=== PATIENT | female | born 1950 | race Caucasian/White ===

== ENCOUNTER → 2020-02-06 10:19 | Outpatient (CLI) | payer MEDICARE, SELFPAY ==
--- NOTE | ~2020-02-06 | XR_ITS ---
EXAMINATION: XR lumbar spine 2-3V DATE: 02/06/2020 10:38 INDICATION: Low back and tailbone pain TECHNIQUE: Anteroposterior and lateral views of the lumbar spine, and cone-down lateral view of the l umbosacral junction were obtained. COMPARISON: None. FINDINGS: There is no fracture. There are 2 mm of retrolisthesis of L4 on L5. Vertebral body alignmen t is otherwise normal. There is mild lumbar dextrocurvature. The vertebral body heights are maintaine d. There is moderate to severe loss of intervertebral disc space height at L1-2, L4-5, and L5-S1. Sma ll degenerative osteophytes project from the anterior endplates of multiple vertebral bodies. There i s facet osteoarthritis of the lower lumbar spine. IMPRESSION: 1. Moderate lumbar spondylosis without acute findings. Reviewed, dictated and finalized at location B.
--- NOTE | ~2020-02-06 | XR_ITS ---
EXAMINATION: XR hip LT 2V w AP pelvis DATE: 02/06/2020 10:38 INDICATION: Left hip pain. TECHNIQUE: An anteroposterior view of the pelvis and 2 views of left hip were obtained. COMPARISON: None. FINDINGS: There is lumbar dextrocurvature and moderate spondylosis. No fracture. There is mild osteoa rthritis of the hips. IMPRESSION: 1. Mild osteoarthritis of the hips. Reviewed, dictated and finalized at location A.
== END ==
PROVIDERS: PCP Family Medicine; Visit Provider Physician Assistant
DX: M47.896 Other spondylosis, lumbar region (principal); M16.0 Bilateral primary osteoarthritis of hip
CPT/HCPCS: 72100; 73502

== ENCOUNTER 2020-05-02 08:42 | Outpatient (CLI) | payer MEDICARE, SELFPAY ==
--- NOTE | 2020-05-02 08:53 | ECHO_ITS ---
Patient Info Name: Giselle Mcfarland Age: 69 years : 1950 Gender: Female Ht: 61 in Wt: 108 lbs BSA: 1.45 m2 BP: 180 / 99 mmHg Technical Quality: Good Exam Date: 05/02/2020 9:01 AM Exam Location: [facility] Patient Status: Outpatient Admit Date: 05/02/2020 Staff Ordering Physician: Ted Zuluaga MD [employer] Operator: Nasrin Zeng RDCS Attending Provider: Ted Zuluaga MD Referring Physician: Margareth REED; Exam Type: CA echo doppler color flow Study Info Indications R01.1 - Cardiac murmur, unspecified Complete two-dimensional, color flow and Doppler transthoracic echocardiogram is performed. Summary 1. Complete two-dimensional, color flow and Doppler transthoracic echocardiogram is performed. 2. Left ventricular chamber dimension is normal. 3. Left ventricular systolic function is normal, estimated at 55-60%. 4. There is mildly increased left ventricular wall thickness. 5. The left ventricular diastolic function is grade I diastolic dysfunction. 6. E/e' 18 is elevated. 7. Global longitudinal strain is abnormal at -11.3%. 8. Left atrial chamber dimension is moderately enlarged. 9. Right atrial chamber dimension is mildly enlarged. 10. There is mild aortic valve sclerosis. 11. There is trace pulmonic regurgitation. 12. Normal inferior vena cava with <50% collapse upon inspiration consistent with elevated right atrial pressure, 10 mmHg. Left Ventricle E/e' 18 is elevated. Global longitudinal strain is abnormal at -11.3%. Left ventricular chamber dimension is normal. Left ventricular systolic function is normal, estimated at 55-60%. There is mildly increased left ventricular wall thickness. The left ventricular diastolic function is grade I diastolic dysfunction. Right Ventricle Right ventricular chamber dimension is normal. Right ventricular systolic function is normal. Left Atria Left atrial chamber dimension is moderately enlarged. Right Atria Right atrial chamber dimension is mildly enlarged. Aortic Valve The aortic valve is trileaflet. There is mild aortic valve sclerosis. There is no aortic valve stenosis. There is no aortic valve regurgitation. Pulmonic Valve There is trace pulmonic regurgitation. Mitral Valve There is no mitral valve stenosis. There is no mitral valve regurgitation. Tricuspid Valve There is no tricuspid valve regurgitation. Pericardium/Pleural There is no pericardial effusion. Inferior Vena Cava Normal inferior vena cava with <50% collapse upon inspiration consistent with elevated right atrial pressure, 10 mmHg. Aorta The aortic root size at the sinus of Valsalva is normal. Left Ventricular Outflow Tract Name Value Normal LVOT 2D LVOT Diameter 2.0 cm LVOT Doppler LVOT Peak Gradient 4 mmHg LVOT Mean Gradient 2 mmHg LVOT VTI 19 cm LVOT VTI/AV VTI Ratio 0.8 LVOT Stroke Volume 60 ml LVOT CO 4.3 l/min LVOT CI
--- NOTE | 2020-05-07 11:22 | WPDPFTINT ---
PFT Interpretation PFT Interpretation: This PFT met all criteria for ATS standards and reproducibility FEV/FVC post bronchodilator 72% FEV1 115% FVC 111% TLC 139% RV 150% RV/TLC 44% DLCO 102% when adjusted for alveolar volume but not adjusted for hemoglobin Flow volume loops were difficult to interpret due to poor patient technique. Impression: No significant obstruction. Hyperinflation and air trapping are present. Normal Diffusion capacity. This pattern is may be suggestive of Asthma or COPD. I would suggest repeating full PFT with pre and post bronchodilator Spirometry or consider adding Methacholine Challenge Testing if clinically indicated.
== END 2020-05-02 08:43 | disposition home or self-care (01) ==
LOC: ANHCARD 08:44
PROVIDERS: PCP Family Medicine; Visit Provider Family Medicine
DX: J44.9 Chronic obstructive pulmonary disease, unspecified (principal); R01.1 Cardiac murmur, unspecified
CPT/HCPCS: 93306; 94375; 94726; 94729

== ENCOUNTER → 2020-06-13 14:32 | Outpatient (CLI) | payer MEDICARE, SELFPAY ==
--- NOTE | ~2020-06-13 | CT_ITS ---
EXAMINATION: CT sinus wo con DATE: 06/13/2020 15:00 INDICATION: Chronic maxillary sinusitis TECHNIQUE: Computed tomography (CT) of the paranasal sinuses was performed without intravenous contra st. The dose-length product was 262.31 mGy-cm. Automated exposure control and iterative reconstructio n technique were employed. COMPARISON: CT dated 03/23/2014 FINDINGS: There is extensive mucosal thickening of all paranasal sinuses, most severe in the maxillar y and ethmoid sinuses. There is mucoperiosteal reaction. Ostiomeatal units are occluded. No significa nt nasal septal deviation. Mastoids are pneumatized. Small mastoid effusions. There is intracranial a therosclerosis. IMPRESSION: 1. Advanced pansinusitis. 2: Small mastoid effusions. Reviewed, dictated and finalized at location B. 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
== END ==
PROVIDERS: PCP Family Medicine; Visit Provider Family Medicine
DX: J32.0 Chronic maxillary sinusitis (principal)
CPT/HCPCS: 70486

== ENCOUNTER 2020-12-01 10:56 | Emergency (ER) | payer MEDICARE, SELFPAY ==
[2020-12-01] VITALS (19 sets, daily range): BP systolic 167–220; BP diastolic 89–133; PULSE 85–101; RESP 12–28; TEMP 36.3–36.7; O2SAT 97–100
--- NOTE | ~2020-12-01 | CT_ITS ---
EXAMINATION: CT brain wo con DATE: 12/01/2020 11:07 INDICATION: Right-sided hemiparesis and facial droop. TECHNIQUE: Computed tomography (CT) of the head was performed without intravenous contrast. Sagittal and coronal reconstructions were performed. The mA was adjusted according to patient size. Iterative reconstruction technique was employed. The dose-length product was 605.33 mGy-cm. COMPARISON: Sinus CT dated 06/13/2020 FINDINGS: 2.0 x 1.3 x 1.3 cm hyperdense intraparenchymal hemorrhage centered in the left lentiform nucleus. No acute acute infarction or abnormal extra axial fluid collection. There is mild scattered white matter hypoattenuation consistent with chronic small vessel ischemic disease. Ventricles are normal and sy mmetric. No mass/mass effect. Changes of bilateral intraocular lens replacement. Mucosal thickening a nd posteriorly layering fluid/mucus throughout the paranasal sinuses with complete or near complete o pacification of the right maxillary sinus and multiple bilateral ethmoid air cells. Small right masto id effusion. Intracranial calcified cerebral atherosclerosis is noted. IMPRESSION: 1. Intraparenchymal hemorrhage in the left lentiform nucleus. Dr. rBanch discussed these findings w ith Dr. Yeung at 11:13 AM. 2. Acute on chronic sinusitis. Reviewed, dictated and finalized at location A. IMPRESSION: 1. Intraparenchymal hemorrhage in the left lentiform nucleus. Dr. Branch disc ussed these findings with Dr. Yeung at 11:13 AM. 2. Acute on chronic sinusitis.
--- NOTE | ~2020-12-01 | XR_ITS ---
EXAMINATION: XR chest 1V portable DATE: 12/01/2020 11:34 INDICATION: Right-sided hemiparesis TECHNIQUE: frontal view of the chest was obtained. COMPARISON: Chest radiograph dated 05/21/2017 FINDINGS: Mild bibasilar atelectasis. No pleural effusion or pneumothorax. Cardiomediastinal silhouette is norm al. Mild thoracolumbar levocurvature with moderate to severe thoracic spondylosis. IMPRESSION: 1. Mild bibasilar atelectasis. Reviewed, dictated and finalized at location A.
--- NOTE | ~2020-12-01 | CT_ITS ---
EXAMINATION: CTA BRAIN/CAROTID DATE: 12/01/2020 12:22 INDICATION: Stroke. TECHNIQUE: Computed tomographic angiography (CTA) of the head and neck was performed with 100 mL Omni paque-350 intravenous contrast. Multiplanar reconstructions and maximum intensity projection 3D-recon structions of the carotid arteries and of the intracranial arteries were created by the technologist on a separate workstation. Automated exposure control and iterative reconstruction technique were emp loyed.The dose-length product was 982.05 mGy-cm. COMPARISON: Head CT dated 12/01/2020 FINDINGS: Carotid arteries: There is minimal plaque with 0% stenosis of the right carotid bulb relative to normal distal artery l umen diameter (NASCET criteria). Small amount of plaque with 0% stenosis of the left carotid bulb rel ative to normal distal artery lumen diameter. Multinodular goiter. With multiple subcentimeter bilate ral thyroid nodules. Cervical soft tissues are otherwise unremarkable. Visualized portions of the air way and upper lungs are clear. Aortic arch is normal in caliber. Intracranial arteries Small amount of atherosclerotic plaque at the bilateral carotid siphons. There is no hemodynamically significant stenosis in the vertebral, basilar and internal carotid arteries. Vertebral arteries are codominant. There are no aneurysms identified. Both A1 and P1 segments are patent. Cerebral arteria l arborization appears symmetric. No significant interval change in a 1.8 x 1.5 x 1.1 cm intraparench ymal hemorrhage centered in the left lentiform nucleus. No evident active extravasation. No abnormall y enhancing brain lesions. Severe cervical spondylosis. There is posterior fusion bilaterally at C2-C 3 and on the left at C4-C5. IMPRESSION: 1. 0% stenosis of the left and right carotid bulbs relative to normal distal artery lumen diameter (N ASCET criteria). 2. Unremarkable cerebral angiogram with no hemodynamically significant stenosis, aneurysm or dissecti on. 3. 1.8 x 1.5 x 1.1 cm intracranial hemorrhage in the left lentiform nucleus. No active extravasation. 4. Multinodular goiter. Reviewed, dictated and finalized at location A. IMPRESSION: 1. 0% stenosis of the left and right carotid bulbs relative to normal distal ar milena lumen diameter (NASCET criteria). 2. Unremarkable cerebral angiogram with no hemodynamically significant stenosis , aneurysm or dissection. 3. 1.8 x 1.5 x 1.1 cm intracranial hemorrhage in the left lentiform nucleus. No active extravasation. 4. Multinodular goiter.
--- NOTE | 2020-12-01 11:01 | ECG_ITS ---
Measurements Intervals [place] Rate: 91 P: 16 [place]: 136 QRS: -39 QRSD: 128 T: 86 QT: 367 QTc: 452 Interpretive Statements SINUS RHYTHM POSSIBLE LEFT ATRIAL ENLARGEMENT LEFT AXIS DEVIATION INTRAVENTRICULAR CONDUCTION DELAY LEFT VENTRICULAR HYPERTROPHY AND ST-T CHANGE BORDERLINE R WAVE PROGRESSION, ANTERIOR LEADS CANNOT RULE OUT SEPTAL INFARCT, AGE INDETERMINATE ABNORMAL ECG Electronically Signed On 12-01-2020 14:22:34 CDT by Sudhakar Damon D.O.
[2020-12-01] MEDS: niCARdipine 20 MG/200 ML 20 MG/200 ML BAG 50 MG (11:18)
--- NOTE | 2020-12-01 11:21 | ED.NEUROSD ---
HPI - Neuro Symptoms/Deficit General Chief Complaint: Suspected CVA Stated Complaint: L SIDE DROOP, R HAND WEAK Time Seen by Provider: 12/01/20 11:21 Source: patient Mode of arrival: ambulatory Limitations: no limitations History of Present Illness HPI Narrative: Patient is a 70-year-old female who presents with facial numbness and weakness that began acutely at 10:30 AM this morning presents per private vehicle was taken to CT imaging and found to have acute hemorrhage. Patient denies injury trauma anticoagulant use or similar occurrence in the past notes that she had felt fine yesterday. Patient with obvious facial droop in the right side of the face. Patient noted slight weakness in the right upper extremity. Patient does not appear distressed or uncomfortable. Related Data Home Medications Medication Instructions Recorded Confirmed montelukast 10 mg tablet 10 mg PO DAILY 07/31/19 09/27/20 losartan 100 mg tablet 100 mg PO tablet 09/27/20 09/27/20 Allergies Allergy/AdvReac Type Severity Reaction Status Date / Time amlodipine Allergy Unknown swelling Verified 09/27/20 11:14 clonidine Allergy Unknown felt Verified 09/27/20 11:14 weird lisinopril Allergy Unknown cough Verified 09/27/20 11:14 metoprolol Allergy Unknown lethargy Verified 09/27/20 11:14 paroxetine Allergy Unknown Nausea Verified 09/27/20 11:14 Penicillins Allergy Unknown Asthma Verified 09/27/20 11:14 Sulfa (Sulfonamide Allergy Unknown Skin Verified 09/27/20 11:14 Antibiotics) Reaction verapamil Allergy Unknown Asthma Verified 09/27/20 11:14 Review of Systems Review of Systems: All systems reviewed & are unremarkable except as noted in HPI and below PMFSH Past Medical History Medical History (Updated 12/01/20 @ 12:27 by Rafael Kaur PA-C) Chronic obstructive pulmonary disease, unspecified Essential (primary) hypertension Essential tremor Family History Family History Father Hypertension Family history of cardiovascular disease, Onset Age: 72 Acute myocardial infarction, Onset Age: 72 Mother Hypertension Family history of cardiovascular disease, Onset Age: 81 Social History Social History Smoking status: Never smoker Second hand tobacco smoke exposure: No Alcohol intake: current Substance use: never Substance use type: does not use Course Course Emergency Course: Patient evaluated in the emergency department found to have cerebral hemorrhage was started on a nicardipine drip her maps are at 110 right now per recommendation of neurosurgery she has been accepted to the ICU at [facility] her condition has not worsened they also wanted a CTA which was obtained patient will be transferred for neurosurgical evaluation hemodynamically stable ABCs and vital signs intact and stable at this time Consultations Consultation #1: Spoke with neurosurgeon Dr. Sol who has accepted the patient wanted the patient to be placed on nicardipine drip with a MAP of [address] of the brain and the patient will be placed in the ICU at [facility] Date: 12/01/20 Time: 12:25 Vital Signs Vital signs: Vital Signs Temperature 97.5 F L 12/01/20 11:12 Pulse Rate 90 12/01/20 11:12 Respiratory Rate 16 12/01/20 11:12 Blood Pressure 216/113 H 12/01/20 11:12 Pulse Oximetry 100 12/01/20 11:12 Temperature 97.3 F L 12/01/20 12:20 Pulse Rate 98 12/01/20 12:25 Respiratory Rate 14 12/01/20 12:25 Blood Pressure 183/98 H 12/01/20 12:25 Pulse Oximetry 99 12/01/20 12:25 MDM - Neuro Symptoms/Deficit MDM Narrative Medical decision making narrative: Patient presented with acute neurologic deficit found to have intraparenchymal hemorrhage was started on a nicardipine drip CTA of the brain and carotids obtained hemodynamically stable will be transferred to neurosurgica
[2020-12-01 11:47] LABS: Basophils Absolute Auto 0.1 K/mm3 (0.0-0.1); Basophils Percent Auto 0.7 % (0.2-1.2); Eosinophils Absolute Auto 0.5 K/mm3 (0-0.3); Eosinophils Percent Auto 6.9 % (0-4.4); Hematocrit 37.3 % (37.0-47.0); Hemoglobin 12.9 g/dL (12.0-15.0); Immature Granulocyte Absolute 0.04 K/mm3 (0.00-0.031); Immature Granulocyte Percent A 0.6 % (0-0.5); Lymphocytes Absolute Auto 1.16 K/mm3 (0.9-3.2); Lymphocytes Percent Auto 16.6 % (18.3-44.2); Mean Corpuscular HGB Conc 34.6 g/dl (32-36); Mean Corpuscular Hemoglobin 30.9 pg (26-34); Mean Corpuscular Volume 89.4 fl (80-100); Mean Platelet Volume 9.3 fl (7.4-10.4); Monocytes Absolute Auto 0.9 K/mm3 (0.1-0.6); Monocytes Percent Auto 12.9 % (2.6-8.5); Neutrophils Absolute Auto 4.4 K/mm3 (1.3-6.7); Neutrophils Percent Auto 62.3 % (45.5-73.1); Platelet Count Result 393 k/mm3 (150-375); Red Blood Count 4.17 M/mm3 (4.2-5.4); Red Cell Distribution Width 12.4 % (11.5-14.5)
[2020-12-01 11:54] LABS: Glucose Point of Care 107 mg/dl (65-105)
[2020-12-01 11:56] LABS: Anion Gap 7 mmol/L (8-16); Blood Urea Nitrogen 12 mg/dL (7-17); Calcium 8.9 mg/dL (8.4-10.2); Carbon Dioxide 25 mmol/L (22-30); Chloride 102 mmol/L (98-107); Estimated CRCL calculation 57 ml/min; Estimated Glomerular Filt Rate > 60; Glucose 102 mg/dL (65-105); Sodium 134 mmol/L (137-145)
[2020-12-01 11:57] LABS: INR 0.9; Partial Thromboplastin Time 31.3 SECONDS (22.3-36.8); Prothrombin Time 12.9 Seconds (11.1-14.7)
[2020-12-01 12:12] LABS: Troponin I < 0.012 ng/mL (0.000-0.034)
--- NOTE | 2020-12-01 12:29 | PC.NURSE ---
at reassessment, patient is able to bring her right hand close to her nose and will lean forward to touch her nose. She is able to move her finger towards my finger but has difficulty touching it. This is an improvement from initial exam when she was unable to lift her right arm up and unable to touch her nose.
--- NOTE | 2020-12-01 12:32 | PC.NURSE ---
Report to ROSA MARIA Davalos at [place]. Room is [address] [place] [address], phone number [phone]
--- NOTE | 2020-12-01 12:48 | PC.NURSE ---
Patient has unsteady but improved gross muscle movement of the right arm. She does not have fine motor movements of the right hand. Unable to hold pen or write her name.
--- NOTE | 2020-12-01 13:00 | PC.NURSE ---
Nicardipine drip to be continue throughout transport by EMS.
== END 2020-12-01 13:00 | disposition short-term general hospital (02) ==
PROVIDERS: Emergency Provider Emergency Medicine; PCP Family Medicine
DX: I61.9 Nontraumatic intracerebral hemorrhage, unspecified (principal); I10 Essential (primary) hypertension; J44.9 Chronic obstructive pulmonary disease, unspecified; J01.90 Acute sinusitis, unspecified; I45.9 Conduction disorder, unspecified; R94.31 Abnormal electrocardiogram [ECG] [EKG]; I51.7 Cardiomegaly; E04.2 Nontoxic multinodular goiter
CPT/HCPCS: 36415; 70450; 70496; 70498; 71045; 80048; 82948; 84484; 85025; 85610; 85730; 93005; 96365; 96366; 99291; Q9967

== ENCOUNTER 2021-01-06 09:30 | Outpatient (CLI) | payer MEDICARE, SELFPAY ==
[2021-01-06 10:00] LABS: Anion Gap 8 mmol/L (8-16); Blood Urea Nitrogen 20 mg/dL (7-17); Calcium 8.7 mg/dL (8.4-10.2); Carbon Dioxide 26 mmol/L (22-30); Chloride 100 mmol/L (98-107); Estimated Glomerular Filt Rate > 60; Glucose 121 mg/dL (65-105); Sodium 134 mmol/L (137-145)
== END 2021-01-06 09:31 | disposition home or self-care (01) ==
PROVIDERS: Anesthesiology; PCP Family Medicine; Visit Provider Otolaryngology
DX: Z79.899 Other long term (current) drug therapy (principal)
CPT/HCPCS: 36415; 80048

== ENCOUNTER 2021-01-10 01:28 | Day surgery (SDC) | payer MEDICARE, SELFPAY ==
[2020-12-31 12:22] VITALS: BMI 19.0
--- NOTE | 2021-01-09 08:49 | PM.IMHP ---
H&P: HPI History of Present Illness Date/Time: 01/09/21 08:49 patient presents for planned surgical procedures. No change in medications or history. Chief Complaint: Recurrent sinusitis, chronic sinusitis, nasal obstruction, septal deviation, inferior turbinate hypertrophy Review of Systems Constitutional: Constitutional: Denies fatigue, Denies fever(s) and Denies lethargy Eyes: Eyes: Denies blurry vision and Denies change in vision ENT: Reports as per HPI Cardiovascular: Cardiovascular: Denies chest pain Respiratory: Respiratory: Denies cough Endocrine: Endocrine: Denies fatigue Hematologic/Lymphatic: Hematologic/Lymphatic: Denies easy bleeding, Denies easy bruising and Denies lymphadenopathy Allergic/Immunologic: Allergic/Immunologic: Denies seasonal rhinorrhea [facility] Past Medical History Medical History (Updated 12/30/20 @ 14:27 by Lars Garcia MD) Chronic obstructive pulmonary disease, unspecified Essential (primary) hypertension Essential tremor Goiter, nontoxic, multinodular Intracerebral hemorrhage Family History Family History Father Hypertension Family history of cardiovascular disease, Onset Age: 72 Acute myocardial infarction, Onset Age: 72 Mother Hypertension Family history of cardiovascular disease, Onset Age: 81 Social History Social History Smoking status: Never smoker Second hand tobacco smoke exposure: No Alcohol intake: never Substance use: never Substance use type: does not use Spiritual care concerns: No Meds Home Medications and Allergies Home Medications Medication Instructions Recorded Confirmed Type budesonide-formoterol HFA 160 2 puff INHALATION Q12H #10.2 gm 09/16/20 12/31/20 Rx mcg-4.5 mcg/actuation aerosol inhaler albuterol sulfate 90 mcg/actuation 1 puff INHALATION Q4H PRN #8.5 g 10/18/20 12/31/20 Rx aerosol inhaler carvedilol 6.25 mg tablet 6.25 mg PO Q12H #180 tablet 12/19/20 12/31/20 Rx clindamycin HCl 300 mg capsule 300 mg PO Q8H #30 cap 12/30/20 12/31/20 Rx biotin 10,000 mcg PO DAILY 12/31/20 12/31/20 History cholecalciferol (vitamin D3) 25 mcg PO DAILY 12/31/20 12/31/20 History [Vitamin D3] multivitamin [Multi-Vitamin] 1 tablet PO DAILY 12/31/20 12/31/20 History potassium 99 mg DAILY 12/31/20 12/31/20 History triamterene 37.5 See Rx Instructions .ROUTE 12/31/20 Rx mg-hydrochlorothiazide 25 mg .COMPLEX #30 capsule capsule amlodipine 10 mg tablet 10 mg PO DAILY 01/02/21 History cyanocobalamin (vitamin B-12) 1,000 mcg PO DAILY 01/02/21 History 1,000 mcg tablet cyclobenzaprine 10 mg tablet 10 mg PO TID PRN 01/02/21 History fluticasone propionate 50 2 spray INTRANASAL BID g 01/02/21 History mcg/actuation nasal spray,suspension naproxen sodium 220 mg tablet 220 mg PO BID PRN 01/02/21 History Allergies Allergy/AdvReac Type Severity Reaction Status Date / Time Penicillins Allergy Unknown Anaphylaxis Verified 12/31/20 12:14 Sulfa (Sulfonamide Allergy Unknown Skin Verified 12/31/20 12:14 Antibiotics) Reaction Exam Const: General: cooperative, healthy appearing, comfortable, well developed and alert HENMT: Head: normal to inspection, normocephalic and atraumatic Ears: hearing grossly normal bilaterally, external ears normal, TM's normal bilaterally and EAC's normal General nose exam: Normal external nose present, Normal nares present, No nasal polyps present, Normal nasal mucous membranes and turbinates present and Normal septum present Face and sinus: normal facial exam Mouth: Yes Normal oral and palatal mucosa present, Yes lip normal, Yes tongue normal, Yes oropharynx normal and Yes moist mucous membranes Teeth and gingiva: dentition normal and gingiva normal Throat: posterior oropharynx normal, tonsils normal and uvula midline Eyes: General: appearance normal,
[2021-01-10] VITALS (8 sets, daily range): BP systolic 166–182; BP diastolic 82–92; PULSE 66–81; RESP 11–15; TEMP 36.6–36.9; O2SAT 95–98
--- NOTE | 2021-01-10 07:03 | WPDHPUPDATE1 ---
History and Physical Update Update Date/Time: 01/10/21 07:03 History and Physical has been reviewed, including an updated exam of the patient. There are NO changes in the patient's condition. Risks, benefits, and alternatives have been discussed and questions answered. Patient agrees to proceed with procedure.
[2021-01-10] MEDS: LACTATED RINGERS 1,000 ML 30 ML IV CONT ×2 (09:26→11:46)
[2021-01-10] MEDS: ACETAMINOPHEN 500 MG TABLET 1000 MG PO (09:27)
--- NOTE | 2021-01-10 09:29 | WPDANESEPPF ---
Anes - Initial Pre Proc Eval Procedure: Operation Date: 01/10/21 10:30 Proposed Procedures p Endoscopic Septoplasty, Bilateral Inferior Turbinectomy, Bilateral Maxillary Antrostomy, Sphenoidotomies, Frontal Sinusotomies, Total Ethmoidectomies with Image Guidance - Lars Garcia MD Date/Time: 01/10/21 09:29 Surgeon: Lars Garcia MD Pre Op Diagnosis: chronic sinusitis Patient Data Age: 70 Gender: F Height: 1.57 m Weight: 46.81 kg Allergies Allergy/AdvReac Type Severity Reaction Status Date / Time Penicillins Allergy Unknown Anaphylaxis Verified 12/31/20 12:14 Sulfa (Sulfonamide Allergy Unknown Skin Verified 12/31/20 12:14 Antibiotics) Reaction Home Medications Medication Instructions Recorded Confirmed Type budesonide-formoterol HFA 160 2 puff INHALATION Q12H #10.2 gm 09/16/20 12/31/20 Rx mcg-4.5 mcg/actuation aerosol inhaler albuterol sulfate 90 mcg/actuation 1 puff INHALATION Q4H PRN #8.5 g 10/18/20 12/31/20 Rx aerosol inhaler carvedilol 6.25 mg tablet 6.25 mg PO Q12H #180 tablet 12/19/20 12/31/20 Rx clindamycin HCl 300 mg capsule 300 mg PO Q8H #30 cap 12/30/20 12/31/20 Rx biotin 10,000 mcg PO DAILY 12/31/20 12/31/20 History cholecalciferol (vitamin D3) 25 mcg PO DAILY 12/31/20 12/31/20 History [Vitamin D3] multivitamin [Multi-Vitamin] 1 tablet PO DAILY 12/31/20 12/31/20 History potassium 99 mg DAILY 12/31/20 12/31/20 History triamterene 37.5 See Rx Instructions .ROUTE 12/31/20 Rx mg-hydrochlorothiazide 25 mg .COMPLEX #30 capsule capsule amlodipine 10 mg tablet 10 mg PO DAILY 01/02/21 History cyanocobalamin (vitamin B-12) 1,000 mcg PO DAILY 01/02/21 History 1,000 mcg tablet cyclobenzaprine 10 mg tablet 10 mg PO TID PRN 01/02/21 History fluticasone propionate 50 2 spray INTRANASAL BID g 01/02/21 History mcg/actuation nasal spray,suspension naproxen sodium 220 mg tablet 220 mg PO BID PRN 01/02/21 History Patient hx anesthesia problems: none Family hx anesthesia problems: none PMFSH Past Medical History Medical History Chronic obstructive pulmonary disease, unspecified Essential (primary) hypertension Essential tremor Goiter, nontoxic, multinodular Intracerebral hemorrhage Family History Family History Father Hypertension Family history of cardiovascular disease, Onset Age: 72 Acute myocardial infarction, Onset Age: 72 Mother Hypertension Family history of cardiovascular disease, Onset Age: 81 Social History Social History Smoking status: Never smoker Second hand tobacco smoke exposure: No Alcohol intake: never Substance use: never Substance use type: does not use Living arrangements: alone Spiritual care concerns: No Anes - Eval Final PreProcedure Day of Procedure 01/10/21 09:29 Patient weight: normal Heart: regular rate and rhythm Lungs: clear to auscultation Airway: Mallampati scale class II and other (upper denture) Neurological: alert and oriented Last oral intake: >/= 8 hours ASA classification: III Emergent: no Anesthetic plan: proceed Anesthesia type and monitoring: general ETT and standard monitoring Informed Consent: The patient's anesthetic plan and its attendant risks and benefits were discussed with the patient/family/POA. Questions were solicited and answers provided to the satisfaction of the patient/family/POA.
[2021-01-10] MEDS: CLINDAMYCIN 900 MG/D5W 50 ML 900 MG/50 ML PIGGYBACK 50 MG IVPB (09:51)
[2021-01-10] MEDS: OXYMETAZOLINE HCL 0.05% NAS 15 ML BTL (*BKC) 1 SPRAY NASAL (10:14)
[2021-01-10] MEDS: LIDO 1%/EPINEPHRINE 1:100,000 20 ML VIAL 50 ML INFILTRATE (10:15)
--- NOTE | 2021-01-10 12:05 | P.OP_ITS ---
Procedure Note - Detailed Date of Procedure 01/10/21 Pre-op Diagnosis chronic sinusitis, acute sinusitis, inferior turbinate hypertrophy Post-op Diagnosis same Procedure Performed 1. Bilateral endoscopic maxillary antrostomies 2. Bilateral endoscopic total ethmoidectomies 3. Bilateral endoscopic sphenoidotomies 4. Bilateral endoscopic frontal sinusotomies 5. Use of image image guidance 6. Bilateral outfracture of inferior turbinates Surgeon Lars Garcia MD Anesthesia general Indications chronic sinusitis, acute sinusitis, inferior turbinate hypertrophy Findings purulence edema thickened mucus throughout all of the sinonasal passages inferior turbinate hypertrophy Description of Procedure the patient was correctly identified and consent was verified in the preoperative holding area. The patient was then brought to the operating room time-out was performed. Afrin-soaked pledgets were placed in bilateral nasal passages and allowed to sit for 5 minutes. Image guidance was initiated. The patient was then prepped and draped for the aforementioned procedure. Afrin- soaked pledgets were removed. Under 0 degree endoscope the left middle turbinate was medialized. Double ball tip probe was utilized to enter the maxillary sinus copious purulence was encountered. Backbiter as well as straight through cut and microdebrider were utilized to perform maxillary antrostomy 3 Kerrison as well as microdebrider and image guidance were utilized to perform total ethmoidectomy. The sphenoidotomy was entered with 1 Kerrison and widened until a 3 Kerrison would further widen it to the skull base image guidance confirm the location of the orbit and skull base throughout the entire times all remaining ethmoid partitions were removed to the frontal sinus was encountered. At this time a 0 degree endoscope was changed to a 70 degree scope and the frontal sinusotomy was opened under image guidance with a frontal image guided suction as well as hose Adam punch. The exact same procedures with the exact same findings were performed on the right side. The left inferior turbinate was then outfractured using a Sherburn elevator. This was performed when the right inferior turbinate as well. Hemostasis was excellent following the procedure. Hemostasis was achieved using the intermittent application of Afrin- soaked pledgets. Following the procedure care the patient was turned over to Anesthesiology. There were no complications. Blood loss 50 cc Estimated Blood Loss 50 Drains No Packing No Pathology none sent Complications No immediate complications Condition stable Disposition PACU
[2021-01-10] MEDS: fentaNYL CITRATE INJ (*CRX) 100 MCG/2 ML VIAL 25 MCG IV PUSH ×2 (12:30→12:39)
== END 2021-01-10 13:50 | disposition home or self-care (01) ==
PROVIDERS: PCP Family Medicine; Visit Provider Otolaryngology
PROC: (CPT 31256; principal; 2021-01-10 10:30)
DX: J01.91 Acute recurrent sinusitis, unspecified (principal); J34.3 Hypertrophy of nasal turbinates; J34.2 Deviated nasal septum; J44.9 Chronic obstructive pulmonary disease, unspecified; I10 Essential (primary) hypertension; G25.0 Essential tremor; E04.2 Nontoxic multinodular goiter; Z79.51 Long term (current) use of inhaled steroids
CPT/HCPCS: 31256; 31257; 31253; 61782; 30930; A9270; J0330; J1100; J2405; J2704; J3010; J7120

== ENCOUNTER 2021-02-22 16:57 | Emergency (ER) | payer MEDICARE, SELFPAY ==
[2021-02-22 17:04] VITALS: BP 198/105; PULSE 96; RESP 20; TEMP 37; O2SAT 98
[2021-02-22 17:58] VITALS: BP 189/97; PULSE 83; RESP 18; O2SAT 97
--- NOTE | 2021-02-22 18:00 | PC.NURSE ---
patient request that her BP retaken at this time. Patient denies any symptoms or pain at this time.
--- NOTE | 2021-02-22 18:02 | PC.NURSE ---
patient states that she is going to go home and continue to monitor her BP at home and she does not want to wait to see a doctor at this time.
== END 2021-02-22 18:02 | disposition left against medical advice (07) ==
LOC: ANHED 18:21
DX: I10 Essential (primary) hypertension (principal)
CPT/HCPCS: 99199

== ENCOUNTER 2021-08-21 14:39 | Outpatient (CLI) | payer MEDICARE, SELFPAY ==
--- NOTE | ~2021-08-21 | MR_ITS ---
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 TECHNIQUE: Magnetic resonance imaging (MRI) of the brain and brainstem was performed without and with 10 mL MultiHance intravenous contrast. Sequences included sagittal and axial T1-weighted FSE, axial diffusion-weighted FS EPI, axial T2*-weighted GRE, axial T2-weighted FLAIR Propeller, and axial T2-we ighted Propeller. Postcontrast sequences included axial and coronal T1-weighted FSE. Apparent diffusi on coefficient (ADC) maps were created. COMPARISON: Head CT 12/01/2020 FINDINGS: There are old blood products involving the left basal ganglia. There is a punctate old micr ohemorrhage in left cerebellum. There are scattered areas of nonspecific increased T2-weighted signal intensity in the cerebral white matter. There is no acute ischemic infarct or abnormal mass lesion. The ventricles are normal in size. There is mucosal thickening in the paranasal sinuses. There are li mehran changes of ocular lens replacement surgeries. There are small bilateral mastoid effusions. IMPRESSION: 1. Moderate nonspecific cerebral white matter disease, which likely represents chronic small vessel i schemic disease. 2. Old blood products involving the left basal ganglia and left cerebellum. Reviewed, dictated and finalized at location E. OSOFT NET DEVELOPER IMPRESSION: 1. Moderate nonspecific cerebral white matter disease, which likely represents chronic small vessel ischemic disease. 2. Old blood products involving the left basal ganglia and left cerebellum.
[2021-08-21 15:18] LABS: Estimated Glomerular Filt Rate > 60
== END 2021-08-21 14:40 | disposition home or self-care (01) ==
LOC: ANHIMG 14:45
PROVIDERS: PCP Family Medicine; Visit Provider Family Medicine
DX: I61.9 Nontraumatic intracerebral hemorrhage, unspecified (principal); I69.351 Hemiplegia and hemiparesis following cerebral infarction affecting right dominant side; R93.0 Abnormal findings on diagnostic imaging of skull and head, not elsewhere classified
CPT/HCPCS: 70553; A9577

== ENCOUNTER 2022-06-08 10:29 | Outpatient (CLI) | payer MEDICARE, SELFPAY ==
[2022-06-08 19:54] LABS: Basophils Percent Auto 0.6 % (0.2-1.2); Eosinophils Absolute Auto 0.2 K/mm3 (0-0.3); Eosinophils Percent Auto 2.8 % (0-4.4); Hematocrit 36.1 % (37.0-47.0); Hemoglobin 11.9 g/dL (12.0-15.0); Immature Granulocyte Absolute 0.02 K/mm3 (0.00-0.031); Immature Granulocyte Percent A 0.3 % (0-0.5); Lymphocytes Absolute Auto 1.26 K/mm3 (0.9-3.2); Lymphocytes Percent Auto 19.6 % (18.3-44.2); Mean Corpuscular Hemoglobin 31.1 pg (26-34); Mean Corpuscular Volume 94.3 fl (80-100); Mean Platelet Volume 9.1 fl (7.4-10.4); Monocytes Absolute Auto 0.7 K/mm3 (0.1-0.6); Monocytes Percent Auto 11.5 % (2.6-8.5); Neutrophils Absolute Auto 4.2 K/mm3 (1.3-6.7); Neutrophils Percent Auto 65.2 % (45.5-73.1); Platelet Count Result 343 k/mm3 (150-375); Red Blood Count 3.83 M/mm3 (4.2-5.4); Red Cell Distribution Width 12.8 % (11.5-14.5); White Blood Count 6.4 K/mm3 (4.5-10.0)
[2022-06-08 20:18] LABS: Alanine Aminotransferase 32 U/L (6-35); Albumin Level 4.1 g/dL (3.5-5.1); Alkaline Phosphatase 110 U/L (38-126); Anion Gap 10 mmol/L (8-16); Aspartate Amino Transferase 54 U/L (14-36); Bilirubin,Total 0.5 mg/dL (0.2-1.3); Blood Urea Nitrogen 35 mg/dL (7-17); Carbon Dioxide 24 mmol/L (22-30); Chloride 101 mmol/L (98-107); Estimated Glomerular Filt Rate > 60; Glucose 98 mg/dL (65-110); Potassium 3.9 mmol/L (3.4-5.0); Sodium 135 mmol/L (137-145)
== END 2022-06-08 10:30 | disposition home or self-care (01) ==
LOC: ANHGOSHLAB 10:31
PROVIDERS: PCP Family Medicine; Visit Provider Family Medicine
DX: R29.898 Other symptoms and signs involving the musculoskeletal system (principal); Z91.81 History of falling; I10 Essential (primary) hypertension
CPT/HCPCS: 36415; 80053; 82607; 84443; 85025

== ENCOUNTER 2022-08-06 13:45 | Outpatient (RCR) | payer MEDICARE, SELFPAY ==
--- NOTE | 2022-07-09 11:54 | PTOPEVAL1 ---
Assessment and note entered by Maged Krishnan, PT Evaluation Information Assessment Status Evaluation Diagnosis other S/S involving the musculoskeletal system Subjective Information Jeny is a 71 year old female coming into the clinic for R sided weakness according to her, when asked about the order stating falls she reports she has never had any falls. Patient states all of her problems are from her R hip and the pain and weakness in the R hip are causing R shoulder pain. Patient states she will not be using any assistive devices, because once you start on them you do not get off of them. The patient also reports occasional shooting pain in her hip from getting out of her car. She is unable to sleep more than a few hours at a time. She does see a chiropractor for her upper body, but will not let them work on her back, because when they do she reports increased pain. Reported Pain Level Pain Score 0: Self Report Additional Pain Score Comments currently in no pain unless therapist palpates over the greater trochanter and piriformis on the R side. Assessment PT Clinical Summary Giselle is a 71 year old female coming into the clinic for Weakness. She has a very closed R hip joint, that therapist thinks needs looked at by orthopedics, but patient reports she will not do that. She has SHAMAR hip weakness worse on the R side and same for the R shoulder. Patient will work on strengthening and stretching while in physical therapy along with manual and modalities to help with stiffness, tightness, and pain. Plan of Care Interventions Electrical Stimulation,Gait Training,Hot Pack/Cold Pack,Manual Therapy,Neuro Re-education,Patient/ Caregiver Education,Therapeutic Activities, Therapeutic Exercise PT Services Indicated Yes Treatment Frequency and 1-2x/wk for 4 weeks Duration These treatments will address the objective and functional deficits as defined above. The patient will be advanced safely and appropriately in order for the patient to progress towards his/her prior level of function. Additional exercises will be introduced and as well as a comprehensive home exercise program upon discharge, if needed, ?to ensure carryover of functional gains achieved in the clinic. This treatment plan has been reviewed and agreement upon by the patient.
--- NOTE | 2022-08-06 14:40 | PTOPDC ---
Assessment and note entered by Maged Krishnan, PT Evaluation Information Assessment Status Discharge Diagnosis other S/S involving the musculoskeletal system. Subjective Information Giselle reports she feels stronger and moving around better. She still is feeling tightness in the R hip and pain with getting in and out of the car, but that the pain is just a temporary shot and does not last. She feels like she has the tools to continue to get stronger and is okay with being discharged with her HEP. Reported Pain Level Pain Score 0: Self Report Pain Score 0: Self Report Additional Pain Score Comments reports soreness, but not pain, but she had just finished physical therapy with ALINE Ventura. Additional Pain Score Comments Pt stated to have soreness at times during the day . Assessment PT Clinical Summary Giselle is a 71 year old female coming into the clinic for weakness and R hip pain. She reports she feels happy with her progress and will keep on doing her HEP. She met 2 of her 5 goals and 2 goals were missed by 1 point on each. Patient discharged from skilled physical therapy with HEP. Prognosis is guarded based on need for new R hip which she reports she doesn't want to do. Plan of Care PT Services Indicated No PT Services Indicated Yes Treatment Frequency and discharged from skilled physical therapy. Duration
== END 2022-08-17 14:59 | disposition home or self-care (01) ==
LOC: ANHPT 13:45
PROVIDERS: PCP Family Medicine; Visit Provider Family Medicine
DX: R29.898 Other symptoms and signs involving the musculoskeletal system (principal); Z91.81 History of falling
CPT/HCPCS: 97110; 97161; 97530

== ENCOUNTER 2022-12-09 09:12 | Outpatient (CLI) | payer MEDICARE, SELFPAY ==
--- NOTE | ~2022-12-09 | CT_ITS ---
EXAMINATION: CT sinus wo con DATE: 12/09/2022 09:43 INDICATION: Chronic sinusitis TECHNIQUE: Computed tomography (CT) of the paranasal sinuses was performed without intravenous contra st. Coronal reconstructions were obtained. Iterative reconstruction technique was employed. The dose- length product was 280.71 mGy-cm. COMPARISON: 03/23/2014 and 06/13/2020 FINDINGS: There is sclerotic wall thickening at the bilateral maxillary and more prominently at the bilateral s phenoid sinuses consistent with chronic sinusitis. There are postoperative changes of bilateral ethmo idectomies and antral window procedures. Scattered mucosal thickening, moderate severity in the bilat eral maxillary and right sphenoid sinuses and mild in the bilateral ethmoid, left frontal and left sp henoid sinuses. Small amount of bubbly mucus is seen at the left frontal sinus and moderate amount of dependently layering mucus in the right sphenoid and bilateral maxillary sinuses consistent with acu te sinusitis. Nasal septum is midline. Changes of bilateral intraocular lens replacement. IMPRESSION: 1. Bilateral acute on chronic sinusitis with postoperative change of prior bilateral ethmoidectomies and antral window procedures. Reviewed, dictated and finalized at location B. IMPRESSION: 1. Bilateral acute on chronic sinusitis with postoperative change of prior bila teral ethmoidectomies and antral window procedures.
== END 2022-12-09 09:13 | disposition home or self-care (01) ==
PROVIDERS: PCP Family Medicine; Visit Provider Otolaryngology
DX: J32.9 Chronic sinusitis, unspecified (principal)
CPT/HCPCS: 70486

== ENCOUNTER → 2023-06-09 10:04 | Outpatient (CLI) | payer MEDICARE, SELFPAY ==
--- NOTE | ~2023-06-09 | XR_ITS ---
XR chest 2V 06/09/2023 10:16 Indication: History of COPD. Cough. Right-sided weakness Procedure: 2 view chest Comparison: Comparison to multiple prior studies sequentially, with oldest reviewed study dated 07/2013. Findings: Heart size normal. No focal air space disease, pulmonary edema, pleural effusion or suspect ed pneumothorax. There is ectasia of the thoracic aorta. Impression: 1: No acute cardiopulmonary disease. Reviewed, dictated and finalized at location B. ESS TECHNICIAN Impression: 1: No acute cardiopulmonary disease.
== END ==
PROVIDERS: PCP Family Medicine; Visit Provider Family Medicine
DX: J44.9 Chronic obstructive pulmonary disease, unspecified (principal); R06.02 Shortness of breath; R05.9 Cough, unspecified
CPT/HCPCS: 71046

== ENCOUNTER 2023-07-19 12:28 | Outpatient (CLI) | payer MEDICARE, SELFPAY ==
--- NOTE | 2023-07-19 15:03 | WPDPFTINT ---
PFT Procedure Performed PFT Procedure Performed Spirometry with Pre/Post Bronchodilator Plethysmography (Lung Vol) Diffusing Cap (DLCO) Flow Vol Loop PFT Interpretation This is a pulmonary function test with pre and post-bronchodilator spirometry, plethysmography and diffusing capacity. The test was performed and results interpreted in accordance with the 2019 and 2005 ATS/ERS Task Force guidelines respectively using the Global Lung Function Initiative-2012 reference equations. Patient demonstrated good effort and cooperation. Reproducibility criteria were met. The quality of the pre bronchodilator spirometry maneuver was Grade B and post bronchodilator spirometry maneuver was Grade A. Findings: Spirometry: The contour the inspiratory and expiratory flow tracing are normal. The pre bronchodilator FVC is 2.76 L, 113% predicted. The pre bronchodilator FEV1 is 1.84 L, 97% predicted. The pre bronchodilator FEV1: FVC ratio 67%. The post bronchodilator FVC is 2.90 L, representing a 5% increase. The post bronchodilator FEV1 is 1.97 L, representing a 7% increase. The post bronchodilator FEV1: FVC ratio is 68%. Plethysmography: The total lung capacity is 4.94 L, 107% predicted. The functional residual capacity is 2.89 L, 110% predicted. The residual volume is 2.18 L, 103% predicted. Diffusing capacity: The diffusing capacity unadjusted for hemoglobin and carboxyhemoglobin is 12.6, 67% predicted. The diffusing capacity adjusted for alveolar volume is 4.26, 98% predicted. Impression: The spirometry is normal without evidence of an obstructive abnormality. There is no significant improvement after inhaling a single dose of albuterol. The lung volumes are normal. The diffusing capacity is normal. There are no prior studies for comparison
== END 2023-07-19 12:29 | disposition home or self-care (01) ==
LOC: ANHPFT 12:31
PROVIDERS: PCP Family Medicine; Visit Provider Family Medicine
DX: J44.9 Chronic obstructive pulmonary disease, unspecified (principal)
CPT/HCPCS: 94060; 94726; 94729

== ENCOUNTER 2024-01-06 10:55 | Emergency (ER) | payer MEDICARE, SELFPAY ==
[2024-01-06] VITALS (8 sets, daily range): BP systolic 128–151; BP diastolic 77–105; PULSE 68–77; RESP 13–20; TEMP 36.4; O2SAT 97–100
--- NOTE | ~2024-01-06 | CT_ITS ---
EXAMINATION: CTA chest abdomen pelvis DATE: 01/06/2024 12:44 INDICATION: Concern for worsening aneurysm presenting with pain between the shoulder blades TECHNIQUE: Computed tomographic angiography (CTA) of the chest, abdomen and pelvis was performed with 100 cc of Omnipaque-350 intravenous contrast. Additional 3D reconstructions utilizing rotating maxim um intensity projection (MIP) were performed. Automated exposure control and iterative reconstruction technique were employed. The dose-length product was 293.67 mGy-cm. COMPARISON: Chest CT dated 03/27/[address] abdomen and pelvis dated 01/09/2013 FINDINGS: Chest: Bibasilar discoid atelectasis in the lingula, right middle and bilateral lower lobes. There is scatte red mucous in the right middle and bilateral lower lobar bronchi as well as additional segmental and subsegmental bronchi. There is a 5 mm right lower lobe nodule along the band of discoid atelectasis. Tree-in-bud opacities in the bilateral lower lobes consistent with endobronchial spread of disease an d pneumonia. No pulmonary edema or pleural effusion. Heart size is normal. Atherosclerotic coronary a rtery calcification. No pericardial effusion. Thoracic aorta is normal in caliber throughout with no dissection. No pathologically enlarged thoracic lymphadenopathy. Severe thoracic and lower cervical s pondylosis. Abdomen and pelvis: Cholecystectomy clips at the gallbladder fossa. Liver, spleen, pancreas, bilateral adrenal glands and kidneys are normal. There is mild colonic diverticulosis with a sigmoid predominance. There is some wall thickening and pericholecystic stranding at the distal sigmoid colon consistent with likely dive rticulitis. No bowel obstruction. No abscess or free intraperitoneal gas or fluid. No pathologically enlarged abdominal or pelvic lymphadenopathy. Abdominal aorta and its major branch vessels are normal in caliber with no hemodynamically significant stenosis or dissection. Severe lower lumbar spondylos is. IMPRESSION: 1. Tree-in-bud opacities in bilateral lower lobes with scattered mucous in the bronchi, segmental and subsegmental bronchi of the right middle and bilateral lower lobes consistent with respiratory tract infection and developing pneumonia. 2. Radiographically uncomplicated distal sigmoid diverticulitis. 3. Normal caliber thoracic and abdominal aorta with no dissection. Reviewed, dictated and finalized at location B. IMPRESSION: 1. Tree-in-bud opacities in bilateral lower lobes with scattered mucous in the bronchi, segmental and subsegmental bronchi of the right middle and bilateral l ower lobes consistent with respiratory tract infection and developing pneumonia . 2. Radiographically uncomplicated distal sigmoid diverticulitis. 3. Normal caliber thoracic and abdominal aorta with no dissection.
--- NOTE | ~2024-01-06 | XR_ITS ---
XR chest 2V Ordering provider: Luis Jarrell MD History: 73 years Female with . chest pain SHARP BETWEEN SHOULDER BLADES TODAY WEAKNESS . Comparison: June 09, 2023 FINDINGS: MEDIASTINUM: The cardiac silhouette is not enlarged. LUNGS: No infiltrates, effusions or pneumothorax. Prominent markings in the lung bases. OTHER: No free air under the diaphragm. Degenerative changes of the spine with S-shaped scoliosis. IMPRESSION: No acute cardiopulmonary pathology. Reviewed, dictated and finalized at location A.
--- NOTE | 2024-01-06 10:57 | ECG_ITS ---
Test Date: 2024-01-06 11:06:28 Measurements Intervals [place] Rate: 77 P: 51 OK: 144 QRS: -30 QRSD: 121 T: 71 QT: 373 QTc: 424 Interpretive Statements SINUS RHYTHM LEFT VENTRICULAR HYPERTROPHY AND ST-T CHANGE [VOLTAGE CRITERIA PLUS ST/T ABNORMALITY] POSSIBLE SEPTAL MYOCARDIAL INFARCTION , OF INDETERMINATE AGE [30 ms Q WAVE IN V1/V2] No previous ECG available for comparison Electronically Signed On 01-06-2024 13:37:49 CDT by Nelsy Banegas M.D.
[2024-01-06 11:16] LABS: Basophils Percent Auto 0.3 % (0.2-1.2); Eosinophils Absolute Auto 0.1 K/mm3 (0-0.3); Eosinophils Percent Auto 0.6 % (0-4.4); Immature Granulocyte Absolute 0.07 K/mm3 (0.00-0.031); Immature Granulocyte Percent A 0.6 % (0-0.5); Lymphocytes Absolute Auto 1.34 K/mm3 (0.9-3.2); Lymphocytes Percent Auto 11.7 % (18.3-44.2); Mean Corpuscular HGB Conc 33.3 g/dl (32-36); Mean Corpuscular Hemoglobin 29.5 pg (26-34); Mean Corpuscular Volume 88.5 fl (80-100); Mean Platelet Volume 9.6 fl (7.4-10.4); Monocytes Absolute Auto 1.4 K/mm3 (0.1-0.6); Monocytes Percent Auto 11.8 % (2.6-8.5); Neutrophils Absolute Auto 8.6 K/mm3 (1.3-6.7); Platelet Count Result 399 k/mm3 (150-375); Red Blood Count 4.07 M/mm3 (4.2-5.4); Red Cell Distribution Width 13.1 % (11.5-14.5); White Blood Count 11.4 K/mm3 (4.5-10.0)
[2024-01-06 11:26] LABS: Prothrombin Time 13.3 Seconds (11.1-14.7)
[2024-01-06 11:27] LABS: Partial Thromboplastin Time 34.2 Seconds (22.3-36.8)
[2024-01-06 11:29] LABS: Alanine Aminotransferase 26 U/L (6-35); Albumin Level 4.6 g/dL (3.5-5.1); Alkaline Phosphatase 164 U/L (38-126); Anion Gap 8 mmol/L (4-12); Aspartate Amino Transferase 34 U/L (14-36); Bilirubin,Total 0.7 mg/dL (0.2-1.3); Blood Urea Nitrogen 27 mg/dL (7-17); Calcium 9.2 mg/dL (8.4-10.2); Carbon Dioxide 21 mmol/L (22-30); Chloride 106 mmol/L (98-107); Estimated CRCL calculation 45 ml/min; Estimated Glomerular Filt Rate > 60; Glucose 101 mg/dL (65-110); Lipase 76 U/L (23-300); Potassium 3.7 mmol/L (3.4-5.0); Sodium 135 mmol/L (137-145)
--- NOTE | 2024-01-06 11:38 | ED.CHESTPAIN ---
HPI - Chest Pain General Chief Complaint: Chest Pain Stated Complaint: chest, back abd pain. Worried it's her aneursym Time Seen by Provider: 01/06/24 11:14 History of Present Illness HPI narrative: 73-year-old female presents to he emergency department for evaluation for back pain that radiates into her chest and into her abdomen. Patient does have a remote history an aneurysm that had been followed by vascular at [facility] but patient has not had follow-up for this and approximately 5 years. Patient states that she has cleared. Patient began developing some back pain yesterday radiated in her chest. Patient states she did not seek evaluation at that time because she was unsure what potential causes could be. Patient did have follow-up with chiropractor yesterday but states symptoms were ongoing before the chiropractor. Patient states she did take some Tylenol for pain control and does feel improved Related Data Home Medications Medication Instructions Recorded Confirmed cholecalciferol (vitamin D3) 25 25 mcg PO DAILY 12/31/20 07/30/23 mcg (1,000 unit) tablet (Vitamin D3) multivitamin 1 tablet PO DAILY 12/31/20 07/30/23 potassium 99 mg tablet 99 mg DAILY 12/31/20 07/30/23 cyanocobalamin (vitamin B-12) 1,000 mcg PO DAILY 01/02/21 07/30/23 1,000 mcg tablet (Vitamin B-12) Allergies Allergy/AdvReac Type Severity Reaction Status Date / Time hydralazine Allergy Intermediate rash Verified 07/30/23 11:31 Penicillins Allergy Unknown Anaphylaxis Verified 07/30/23 11:31 Sulfa (Sulfonamide Allergy Unknown Skin Verified 07/30/23 11:31 Antibiotics) Reaction doxycycline AdvReac Intermediate Nausea Verified 07/30/23 11:31 Review of Systems Review of Systems: All systems reviewed & are unremarkable except as noted in HPI and below PMFSH Past Medical History Medical History Chronic obstructive pulmonary disease, unspecified COVID-19 Essential (primary) hypertension Essential tremor Goiter, nontoxic, multinodular Intracerebral hemorrhage Family History Family History Father Hypertension Family history of cardiovascular disease, Onset Age: 72 Acute myocardial infarction, Onset Age: 72 Mother Hypertension Family history of cardiovascular disease, Onset Age: 81 Social History Social History Smoking status: Never smoker Second hand tobacco smoke exposure: No Alcohol intake: never Substance use: never Substance use type: does not use Lack of Transportation: No Lack of Food: Never True Current Housing: I Have Housing Concerned About Future Housing: No Difficulty Paying Gas/Electric Bills: No Difficulty Paying for Meds: No Currently Unemployed: No Education: High School Diploma/GED Difficulty w/ Childcare or Family Care: No Living arrangements: alone Spiritual care concerns: No Exam Narrative: APPEARANCE: Well appearing, no pain, no distress, well-nourished. HEAD: normocephalic, atraumatic. EYES: PERRLA/EOMI, conjunctivae clear. NOSE: Normal no drainage EARS:TMS clear with good light reflex. THROAT: Pharynx clear, no exudate. NECK: Supple. No adenopathy, no masses. RESPIRATORY: Airway patent, respirations nonlabored. Clear to auscultation bilaterally, no rales, rhonchi, wheezing. CARDIOVASCULAR: Regular rate and rhythm without murmurs rubs or gallops. ABDOMINAL: Soft, nontender, nondistended, normal bowel sounds MUSCULOSKELETAL: Moves all extremities. Strength/ROM intact, No edema, No calf tenderness. NEURO: Alert. Cranial nerves II through XII intact. Grossly intact SKIN: Warm, dry. Normal Color Course Vital Signs Vital signs: Vital Signs Temperature 97.5 F L 01/06/24 11:02 Pulse Rate 73 01/06/24 11:02 Respiratory Rate 20 01/06/24 11:02 Blood Pressure 129/105 H 01/06/24
[2024-01-06 11:41] LABS: Troponin I < 0.012 ng/mL (0.000-0.034)
[2024-01-06] MEDS: ASPIRIN 81 MG CHEWABLE TABLET 324 MG PO (12:28)
[2024-01-06] MEDS: CIPROFLOXACIN 500 MG TAB PO (13:53)
[2024-01-06] MEDS: metroNIDAZOLE 500 MG TABLET PO (13:53)
--- NOTE | 2024-01-06 14:07 | ECG_ITS ---
Test Date: 2024-01-06 14:07:38 Measurements Intervals [place] Rate: 66 P: 43 MT: 162 QRS: -23 QRSD: 133 T: 86 QT: 427 QTc: 448 Interpretive Statements SINUS RHYTHM WITH OCCASIONAL VENTRICULAR PREMATURE COMPLEXES WITH OCCASIONAL SUPRAVENTRICULAR PREMATURE COMPLEXES INTRAVENTRICULAR CONDUCTION DELAY [130+ ms QRS DURATION] LEFT VENTRICULAR HYPERTROPHY AND ST-T CHANGE [VOLTAGE CRITERIA PLUS ST/T ABNORMALITY] ABNORMAL ECG Compared to ECG 01/06/2024 11:06:28 ATRIAL AND VENTRICULAR ECTOPICS ARE SEEN, NO OTHER CHANGE Electronically Signed On 01-07-2024 15:42:28 CDT by Ted Ashby M.D.
[2024-01-06 14:49] LABS: Troponin I < 0.012 ng/mL (0.000-0.034)
== END 2024-01-06 15:30 | disposition home or self-care (01) ==
PROVIDERS: Emergency Provider Emergency Medicine; PCP Family Medicine
DX: J18.9 Pneumonia, unspecified organism (principal); K57.32 Diverticulitis of large intestine without perforation or abscess without bleeding; R07.9 Chest pain, unspecified; J44.9 Chronic obstructive pulmonary disease, unspecified; I10 Essential (primary) hypertension; Z86.16 Personal history of COVID-19; Z79.899 Other long term (current) drug therapy; R94.31 Abnormal electrocardiogram [ECG] [EKG]; I51.7 Cardiomegaly; I49.3 Ventricular premature depolarization; I49.1 Atrial premature depolarization; I45.9 Conduction disorder, unspecified
CPT/HCPCS: 36415; 71046; 71275; 74174; 80053; 83690; 84484; 85025; 85610; 85730; 93005; 99284; A9270; Q9967

== ENCOUNTER 2024-04-06 10:04 | Outpatient (CLI) | payer MEDICARE, SELFPAY ==
--- NOTE | ~2024-04-06 | XR_ITS ---
EXAMINATION: XR chest 2V 04/06/2024 10:25 INDICATION: Shortness of breath PROCEDURE: 2 view chest COMPARISON: Comparison to multiple prior studies sequentially, with oldest reviewed study dated 05/12. FINDINGS: There is chronic left basilar atelectasis/scarring. No acute focal pneumonia, edema or effu georgie. No pneumothorax. The cardiomediastinal silhouette is within normal limits. There are no pleura l effusions. There is no pneumothorax suspected. IMPRESSION: 1: NO ACUTE CARDIOPULMONARY DISEASE. Reviewed, dictated and finalized at location B.
== END 2024-04-06 10:05 | disposition home or self-care (01) ==
PROVIDERS: PCP Family Medicine; Visit Provider Nurse Practitioner
DX: R06.00 Dyspnea, unspecified (principal); R06.02 Shortness of breath
CPT/HCPCS: 71046

== ENCOUNTER 2024-10-27 09:42 | Outpatient (CLI) | payer MEDICARE, SELFPAY ==
--- OUTSIDE RECORDS SUMMARY | 2024-10-27 09:51 | XMS_ITS | Referral Summary ---
Author Organization [facility] Address [address] [place] [address] Care Team Providers Care Chisel Trimmer Name Role Phone Ted Zuluaga MD Primary Care Provider [phone] Allergies Active Allergy Reactions Criticality Noted Date Comments Penicillins Anaphylaxis,Shortnes s of breath High Sulfa (Sulfonamide Antibiotics) Anaphylaxis,Shortness of breath High Watermelon Other (See comments) Low 01/01/2021 Reaction: Other Medications cyclobenzaprine (FLEXERIL) 5 mg tablet Take 1 mg by mouth 3 (three) times a day as needed for muscle spasms Active budesonide-form oteroL (SYMBICORT) 160-4.5 mcg/actuation inhaler Inhale 2 puffs 2 (two) times a day Rinse mouth with water after use. Do not swallow. Active albuterol HFA (PROVENTIL HFA,VENTOLIN HFA,PROAIR HFA) 90 mcg/actuation inhaler Inhale 1 puff every 4 (four) hours as needed for wheezing or shortness of breath Active fluticasone propionate (FLONASE) 50 mcg/actuation nasal spray Administer 2 sprays into each nostril 2 (two) times a day Active triamterene-hyd roCHLOROthiazid e (MAXZIDE,DYAZID E) 37.5-25 mg per tablet/capsule Take 1 tablet/capsule by mouth nightly 30 tablet/capsu le 1 Active potassium 99 mg tablet Take 1 tablet (99 mg total) by mouth daily Active zinc 50 mg tablet Take 50 mg by mouth daily Active ascorbic acid (vitamin C) 1,000 mg tablet Take 1 tablet (1,000 mg total) by mouth daily Active multivitamin capsule Take 1 capsule by mouth daily Active amLODIPine (NORVASC) 2.5 mg tablet Take 1 tablet (2.5 mg total) by mouth daily 3 Active HYDROcodone-jerilyn taminophen (NORCO) 10-325 mg per tablet TAKE 1/2 TABLET BY MOUTH EVERY 6 HOURS NEEDED FOR PAIN 3 Active irbesartan (AVAPRO) 300 mg tablet Take 1 tablet (300 mg total) by mouth nightly Active atorvastatin (LIPITOR) 20 mg tabletIndicatio ns:History of stroke,Hypercho lesteremia Take 1 tablet (20 mg total) by mouth daily 30 tablet 11 3 Active Additional Information Patient not taking.Reported on 04/05/2024 aspirin 81 mg enteric coated tabletIndicatio ns:History of stroke TAKE 1 TABLET BY MOUTH EVERY DAY 30 tablet 11 4 Active Additional Information Patient not taking.Reported on 04/05/2024 sertraline (ZOLOFT) 50 mg tablet 50 MG ORALLY DAILY 4 Active Active Problems Problem Noted Date Diagnosed Date Chest tightness 02/02/2023 Fatigue 02/02/2023 Hypercholesteremia 02/02/2023 Essential hypertension 02/10/2021 LVH (left ventricular hypertrophy) 02/10/2021 History of stroke 02/10/2021 Diagnosis unknown 12/01/2020 Mediastinal mass 01/13/2013 Social History Tobacco Use Types Packs/Day Years Used Date Smoking Tobacco: Never Smokeless Tobacco: Never Tobacco Cessation:Counseling Given: Not Answered PHQ-2 Answer Date Recorded PHQ-2 Total Score (If total score is 3 or more points, staff should administer the PHQ-9) 0 12/03/2020 Personal Safety Answer Date Recorded Getting School Help Needed Not on file 08/08 Comments Unknown Sex and Gender Information Value Date Recorded Sex Assigned at Not on file 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 Gender Identity Not on file Sexual Orientation Not on file Last Filed Vital Signs Vital Sign Reading Time Taken Comments Blood Pressure 132/78 04/05/2024 10:39 AM CDT Pulse 76 04/05/2024 10:39 AM CDT Temperature 36.7 C (98.1 F) 12/05/2020 10:00 AM CDT Respiratory Rate 16 12/05/2020 8:00 AM CDT Oxygen Saturation 96% 04/05/2024 10:39 AM CDT Inhaled Oxygen Concentration - - Weight 49.9 kg (110 lb) 04/05/2024 10:39 AM CDT Height 154.9 cm (5' 1 ) 04/05/2024 10:39 AM CDT Body Mass Index 20.78 04/05/2024 10:39 AM CDT Plan of Treatment Not on file Insurance MEDICARE [facility] [place] [facility] SENIOR SUPPLEMENT MEDICARE [facility] Advance Directives For more information, please contact: [phone] * Full Code (Latest Code Status on File) Date Activated Date Inactivated Comments 12/01/2020 2:06 PM 12/05/2020 4:15 PM Care Teams Chisel Trimmer Relationship Specialty Start Date End Date eTd Zuluaga MD PCP - General Family Medicine 12/06/20
--- OUTSIDE RECORDS SUMMARY | 2024-10-27 09:51 | XMS_ITS | Encounter Summary ---
Author Organization [facility] Address [address] [place] [address] Care Team Providers Care Naval Aircrewman Helicopter Name Role Phone Unknown, Notinfile Primary Care Provider Unavail able Clinic, Primary Care Medicine Primary Care Pr ovider Unknown, Notinfile Primary Care Provider Unavail able Ted Zuluaga MD Primary Care Provider [phone] Encounter Details Date Type Department Care Team (Late st Contact Info) Description 12/01/[address] 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 Gender Identity Not on file Sexual Orientation Not on file documented as of this encounter Plan of Treatment Not on file documented as of this encounter Visit Diagnoses Not on filedocumented in this encounter Care Teams Naval Aircrewman Helicopter Relationship Specialty Start Date End Date Unknown, Notinfnory PCP - General 12/01/20 12/03/20 Clinic[facility] [address] [facility] [address] [place] [address] PCP - General Family Medicine 12/04/20 12/04/20 Unknown, Smooth PCP - General 12/05/20 12/05/20 Ted Zuluaga MD [address] [facility] [address] [place] [address] PCP - General Family Medicine 12/06/20 documented as of this encounter
--- OUTSIDE RECORDS SUMMARY | 2024-10-27 09:51 | XMS_ITS | Clinical Summary ---
Author Organization [facility] Address [address] [place] [address] Care Team Providers Care Flosser Name Role Phone Ted Zuluaga MD Primary Care Provider [phone] Allergies Active Allergy Reactions Criticality Noted Date [...] 02/10/2021 Diagnosis unknown 12/01/2020 Mediastinal mass 01/13/2013 Medical History Medical History Date Comments Arthritis Asthma COPD (chronic obstructive pulmonary disease) (HC C) Hypertension Acid indigestion Stroke (HCC) Family History Medical History Relation Name Comments Heart attack Father pacemaker Father Heart disease Mother took a heart p ill Stroke Mother Relation Name Status Comments Father (Age 72) Mother (Age 91) Social History Tobacco Use Types Packs/Day Years [...] on file 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 Gender Identity Not on file Sexual Orientation Not on file Obstetrics History Last Filed Vital Signs Vital Sign Reading [...] 04/05/2024 10:39 AM CDT Plan of Treatment Health Maintenance Due Date Last Done Comments Hepatitis C Screening 1950 Osteoporosis Screening-Bone Density Scan 1950 DTaP/Tdap/Td Vaccine (1 - Tdap) 1959 Hepatitis B Screening 1966 Zoster Vaccine (1 of 2) 1998 Well Visit 65+ 2013 Pneumococcal vaccine 65+ (2 of 2 - PCV) 04/27/2015 04/27/2014 Depression Screening 12/01/2021 12/01/2020, 12/02/19 21 Fall Risk Assessment 12/05/2021 12/05/2020 Influenza Vaccine (#1) 2024 0, 04/10/2019, 05/12/2018, Additional history exists Insurance MEDICARE [employer] SENIOR SUPPLEMENT MEDICARE [employer] [facility] [employer] SENIOR SUPPLEMENT MEDICARE [employer]ET[employer] [facility] AETNA SENIOR SUPPLEMENT Advance Directives For more information, please contact: [phone] * Full Code (Latest Code Status on File) Date Activated Date Inactivated Comments 12/01/2020 2:06 PM 12/05/2020 4:15 PM Care Teams Flosser Relationship Specialty Start Date End Date Ted Zuluaga MD PCP - General Family Medicine 12/06/20
--- OUTSIDE RECORDS SUMMARY | 2024-10-27 09:51 | XMS_ITS | Continuity of Care Document ---
Author Organization [facility] Address [address] [place] [address] [place] [address] Phone Care Team Providers Care Building Trades Teacher Name Role Phone Nabeel Case Unavailable Unavailable Procedures Procedure Date Eye Exam Established Pt Ophthalmoscopy, Subsequent Ophthalmoscopy, Subsequent Eye Exam & Treatment Eye Exam Established Pt Ophthalmoscopy, Subsequent Eye Exam Established Pt Office/outpatient Visit, Est Office/outpatient Visit, Est Ophthalmoscopy, Subsequent Office/outpatient Visit, Est Ophthalmoscopy, Subsequent Office/outpatient Visit, Est Ophthalmoscopy, Subsequent Office Consultation Ophthalmoscopy Advance Directives Directive Yes / No Effective Date File Name No Information Encounters Encounter Description Practice Location Reason(s) For Visit Diagnoses Date Provider Providers Copied on Encounter [facility], [address] [place] [address] [address], [place], [place], [id number], [place] tel:[phone] [facility] No Information 0 Manpreet Lees. [address] [place], [address], [place]. tel:[phone] Referring Provider: Nabeel Salmeron, [address] [place], [address]. tel:[phone] [facility], [address] [place] [address] [address], [place], [place], [id number], [place] tel: [phone] [facility] No Information Oct-0 4-201 0 Manpreet Lees. [address] [place], [place], [facility], [place]. tel: [phone] Referring Provider: Ted Domínguez MD P, [address] [facility], [place], [address] . tel:[phone] [facility], [address], [place], [place], [id number], [place] tel:[phone] [facility] [place] No Information Aug-1 2-201 0 Manpreet Lees. [address] [place], [place], [facility], [place]. tel: [phone] Referring Provider: Nabeel Salmeron, [address], [place], [facility]. tel:[phone] [facility], [address], [place], [place], [id number], [place] tel: [phone] [facility] No Information Sep-1 7-200 7 Manpreet Lees. [address], [place], [facility], [place]. tel: [phone] Office/outpati ent Visit, [facility] [place] [address] [place] [address] [address], [place], [place], [id number], [place] tel: [phone] [facility] No Information Apr-1 6-200 7 Manpreet Lees. [address], [place], [facility], [place]. tel: [phone] Office/outpati ent Visit, [facility], [address] [place] [address] [address], [place], [place], [id number], [place] tel:[phone] [facility] No Information Apr-0 5-200 7 Manpreet Lees. [address], [place], [facility], [place]. tel: [phone] [facility], [address], [place], [place], [id number], [place] tel:[phone] [facility] No Information 7 Manpreet Lees. [address] [place], [address], . tel:[phone] Office/outpati ent Visit, [facility], [address], [place], [place], [id number], [place] tel:[phone] [facility] No Information 7 Manpreet Lees. [address], [place], [facility], [place]. tel:[phone] Office Consultation [facility], [address], [place], [place], [id number], [place] tel:[phone] [facility] No Information 7 Manpreet Lees. [address], [place], [facility], [place]. tel:[phone] Referring Provider: Flavia Phoenix, [address] [place], [place] [address], [place], [place], [facility]. tel:[phone] Family History Family Member Type Diagnosis Age At Onset No Information Payers Payer name Insurance type Covered constitution party ID Authorlexiia roxana(s) [place] Rule Insurance CI [id number] Social History Type Description Quantity Date Captured Comments Sex Female Smoking Status No Information Chief Complaint And Reason For Visit No Information Reason For Referral Reason For Referral No Information History Of Present Illness Encounter Date Complaint History Of Prese nt Illness No Information Functional Status Date Functional Assessmen t No Information Instructions Date Instruction Additional Infor mation No Information Assessments Type Assessment Date No Information Patient Care Teams Name Effective Dates (start - stop) Status Members No Information
== END 2024-10-27 09:43 | disposition home or self-care (01) ==
PROVIDERS: PCP Family Medicine; Visit Provider Otolaryngology
DX: H90.3 Sensorineural hearing loss, bilateral (principal); H93.13 Tinnitus, bilateral
CPT/HCPCS: 92557; 92567

== ENCOUNTER 2024-11-17 11:06 | Emergency (ER) | payer MEDICARE, SELFPAY ==
--- NOTE | ~2024-11-17 | XR_ITS ---
XR chest 2V 11/17/2024 11:48 Indication: Productive cough for one week Procedure: 2 view chest Comparison: Comparison to multiple prior studies sequentially, with oldest reviewed study dated 05/13. Findings: Borderline heart size. There is atherosclerosis and ectasia of the aorta. Chronic left basi lar infiltrates most likely represent atelectasis or scarring. No acute focal pneumonia, edema, pleur al effusion or pneumothorax. There is scoliosis. Impression: 1: No acute cardiopulmonary disease. Reviewed, dictated and finalized at location A. Impression: 1: No acute cardiopulmonary disease.
[2024-11-17 11:16] VITALS: BP 130/81; PULSE 88; RESP 18; TEMP 36.1; O2SAT 97
--- NOTE | 2024-11-17 11:32 | ED_ITS ---
HPI - URI/Sore Throat General Chief Complaint: Upper Respiratory Infection Stated Complaint: WEAKNESS/UPPER ABD PAIN/COUGH Time Seen by Provider: 11/17/24 11:22 Source: patient, RN notes reviewed and old records reviewed Mode of arrival: ambulatory Limitations: no limitations History of Present Illness HPI Narrative: 74-year-old female who presents to [facility] with complaints of cough which is at times productive of yellow mucus, weakness and fells like she is not getting any better for over a week. Patient was prescribed antibiotic cough medication and steroid for 7 day by her PCP on the of month. Patient reports that she finished the antibiotic and has been taking cough medication only has taken 3 days of steroids has not taken any for 2 days. and is taking Mucinex.Patient reports that she is sore in her upper abdomen area from coughing so much.Patient denies any known fever, chills or sweats. MD elicited complaint: cough, sinus pain and other (weakness, pain in upper abdomen area from coughing so much) Pertinent past history: COPD and asthma Onset (ago): week(s) (1) Description of mucous: yellow Able to tolerate fluids by mouth: Yes Exacerbating factors: other (cough) Treatments prior to arrival: antibiotics and other (cough medication, steroid, Mucinex) Related Data Home Medications ?Medication ?Instructions ?Recorded ?Confirmed ?Last Taken ?Type cholecalciferol (vitamin D3) 25 25 mcg PO DAILY 12/31/20 11/17/24 Unknown History mcg (1,000 unit) tablet (Vitamin D3) multivitamin 1 tablet PO DAILY 12/31/20 11/17/24 Unknown History cyanocobalamin (vitamin B-12) 1,000 mcg PO DAILY 01/02/21 11/17/24 Unknown History 1,000 mcg tablet (Vitamin B-12) prednisone 50 mg tablet 50 mg PO DAILY 11/17/24 11/17/24 Unknown History Allergies Allergy/AdvReac Type Severity Reaction Status Date / Time hydralazine Allergy Intermediate rash Verified 11/17/24 11:12 Penicillins Allergy Unknown Anaphylaxis Verified 11/17/24 11:12 Sulfa (Sulfonamide Allergy Unknown Skin Verified 11/17/24 11:12 Antibiotics) Reaction doxycycline AdvReac Intermediate Nausea Verified 11/17/24 11:12 Review of Systems Review of Systems: CONSTITUTIONAL: Reports malaise, no chills, sweats, or fever. EYES: Denies visual changes, redness, or discharge. ENT: Reports rhinorrhea, congestion, sinus pain,no otalgia and no sore throat. CARDIOVASCULAR: Denies chest pain, palpitations, or edema. RESPIRATORY: Reports cough.? dyspnea with exertion.reports upper abdomen soreness from frequent cough GASTROINTESTINAL: Denies abdominal pain, nausea, vomiting, diarrhea SKIN: Denies rash or itching. MUSCULOSKELETAL: Denies myalgia. NEUROLOGIC: Denies headache. All systems reviewed & are unremarkable except as noted in HPI and below PMFSH Past Medical History Medical History (Updated 11/19/24 @ 21:48 by Noemy Yousif NP) Chronic back pain Chronic sinusitis Left ear impacted cerumen Infective otitis externa Bilateral hearing loss due to cerumen impaction COVID-19 Goiter, nontoxic, multinodular Intracerebral hemorrhage Chronic obstructive pulmonary disease, unspecified Essential tremor Essential (primary) hypertension Surgical History Surgical History (Updated 11/19/24 @ 21:46 by Noemy Yousif NP) History of cataract surgery Hx of appendectomy Family History Family History Father Hypertension Family history of cardiovascular disease, Onset Age: 72 Acute myocardial infarction, Onset Age: 72 Mother Hypertension Family history of cardiovascular disease, Onset Age: 81 Social History Social History Social History: Caffeine-daily Smoking status: Never smoker Second hand tobacco smoke exposure: No Alcohol intake: never Substance use: never Substance use type: does not use Do You Feel Safe in your Home?: Yes Lack of Transportation: No Lack of Food: Never True Current Housing: I Have Housing Concerned About Future Housing: No Difficulty Paying Gas/Electric Bills: No Difficulty Paying for Meds: No Currently Unemployed: No Education: High School Diploma/GED Difficulty w/ Childcare or Family Care: No Living arrangements: alone Spiritual care concerns: No Comments At time of signature, agree with nursing past medical, surgical, social and family history. There is no relevant family history pertinent to the presenting complaint Exam Narrative: GENERAL: chronic ill-appearing, fair-nourished, frail and in no acute distress. HEAD: Normocephalic EYES: PERRLA, conjunctivae clear ENT: Nares clear, turbinates edematous and erythematous, clear discharge. Mucous membranes moist. TM pearly macias with dull light reflex bilaterally; no tragal tenderness. Oropharynx erythematous without lesions. Tonsils not enlarged and without exudate, no drooling, no hoarseness, no trismus, uvula midline. NECK: Supple. No lymphadenopathy CHEST: Decreased breath sounds lung bases on auscultation, breath sounds equal. No wheezing, rhonchi, rales, or stridor. No respiratory distress, speaks in full sentences.frequent cough noted at times productive, SAO2 97% on room air HEART: Regular rate and rhythm. No murmur heard. SKIN: Warm, dry, no rash. NEURO: Alert and oriented x3. PSYCH: Normal mood and affect Course Course Emergency Course: Patient is aware of diagnosis, understands and agrees to treatment plan.? Anticipatory guidance given.? Patient agrees to follow-up as directed and is aware of reasons to seek care at the emergency department. Portions of this record may have been created with voice recognition software Level of Care: Express Care Visit Vital Signs Vital signs: Vital Signs Temperature 36.1 C L 11/17/24 11:16 Pulse Rate 88 11/17/24 11:16 Respiratory Rate 18 11/17/24 11:16 Blood Pressure 130/81 11/17/24 11:16 Pulse Oximetry 97 11/17/24 11:16 Temperature 36.1 C L 11/17/24 11:16 Pulse Rate 88 11/17/24 11:16 Respiratory Rate 18 11/17/24 11:16 Blood Pressure 130/81 11/17/24 11:16 Pulse Oximetry 97 11/17/24 11:16 Reviewed MDM - URI/Sore Throat MDM Narrative Medical decision making narrative: Differential diagnosis considered: Yang virus, strep pharyngitis, allergic rhinitis, upper respiratory tract infection, sinusitis, rhinosinusitis, nasopharyngitis. viral pharyngitis, otitis media, otitis externa, pneumonia, bronchitis, viral cough syndrome, viral syndrome, and influenza.? Exam findings show no acute concerns or changes; patient is non-toxic appearing and is in no distress.? Patient is appropriate for outpatient treatment and follow-up. Differential Diagnosis Differential diagnosis: Likely upper respiratory infection, sinusitis, viral infection and other (acute cough, Exacerbation of COPD) Medical Records Attestation: I reviewed the patient's medical records. Lab Data Attestation: I reviewed the patient's lab results. Imaging Data Attestation: I personally reviewed and interpreted this imaging study as follows: My impression: no acute cardiopulmonary disease chronic left basilar infiltrates most likely from from atelectasis or scarring, scoliosis Radiologist's impression: [facility] [address] [place] [address] XRay Report Signed Patient: Giselle Mcfarland I : 1950 MR#: [id number] Age: 74 Acct:[id number] Loc: [facility] ADM Date: 11/17/24Attending Dr: Ordering Physician: Noemy Yousif APRN Date of Service: 11/17/24 Procedure(s): XR chest 2V Accession Number(s): [id number] cc: Ted Zuluaga MD; Noemy Yousif APRN~ XR chest 2V 11/17/2024 11:48 Indication: Productive cough for one week Procedure: 2 view chest Comparison: Comparison to multiple prior studies sequentially, with oldest reviewed study dated 06/09/2023. Findings: Borderline heart size. There is atherosclerosis and ectasia of the aorta. Chronic left basilar infiltrates most likely represent atelectasis or scarring. No acute focal pneumonia, edema, pleural effusion or pneumothorax. There is scoliosis. Impression: 1: No acute cardiopulmonary disease. Reviewed, dictated and finalized at location A. Please be advised this is a medical document. It is intended for [id number] communication. It is written in medical language and may contain unfamiliar abbreviations or verbiage. Medical documents are intended to carry relevant information, facts as evident, and the clinical opinion of the practitioner at the time of the encounter. This report may have been done utilizing a voice recognition system. Attempts have been made to correct errors. However, there may be uncorrected grammatical, spelling, and recognition errors present. The file time of this note does not necessarily represent the time of service. Dictated By: Tariq Church MD 11/17/24 1150 Signed By: <Electronically signed by Tariq Church MD in OV> 11/17/24 1152 Critical Care Time Critical Care Time Critical Care Time: No Discharge Plan Discharge Clinical Impression: COPD exacerbation Patient Disposition: Home Condition: Stable Instructions: Prednisone (By mouth), COPD (Chronic Obstructive Pulmonary Disease) (ED) Additional Instructions: Increase fluids especially juices and water Eupn-owf-amwrzhf cough and cold medicine of your choice for your symptoms Prescription cough medicine as directed--caution drowsiness and no driving or alcohol has received Mucinex for congestion during the day Continue your inhaler/nebulizer as directed Steroids as directed--take with food finish your present script heat to the face 20-30 minutes 4-6 times a day for pain Salt water gargles, throat lozenges or throat sprays as desired If your symptoms persist, change or worsen significantly before you can contact your personal physician then please, without delay, go to the emergency department for further evaluation. Follow-up with PCP in 7-10 days or sooner if needed Follow up with PCP soon in regards to your blood pressure which is elevated above threshold for referral. Blood pressure above 120/80 may indicate pre- hypertension.130/81 Patient Language: Mexican Prescriptions: No Action prednisone 50 mg tablet 50 mg PO DAILY cyclobenzaprine 10 mg tablet See Rx Instructions .ROUTE .COMPLEX Qty: 30 3RF Dose Instruction: TAKE 1 TABLET BY MOUTH THREE TIMES DAILY NEEDED FOR MUSCLE SPASM Rx Instructions: TAKE 1 TABLET BY MOUTH THREE TIMES DAILY NEEDED FOR MUSCLE SPASM may need ortiz lopez if not covered azelastine 137 mcg (0.1 %) aerosol,spray 1 spray intranasal Q12H Qty: 30 0RF Rx Instructions: administer into each nostril amlodipine 2.5 mg tablet 2.5 mg PO DAILY Qty: 90 1RF irbesartan 300 mg tablet 300 mg .ROUTE DAILY Qty: 90 1RF Rx Instructions: 300 mg daily; multivitamin Tablet 1 tablet PO DAILY cholecalciferol (vitamin D3) [Vitamin D3] 25 mcg (1,000 unit) Tablet 25 mcg PO DAILY cyanocobalamin (vitamin B-12) [Vitamin B-12] 1,000 mcg tablet 1,000 mcg PO DAILY triamterene-hydrochlorothiazid 37.5-25 mg capsule See Rx Instructions .ROUTE .COMPLEX Qty: 90 1RF Dose Instruction: TAKE 1 CAPSULE BY MOUTH EVERY DAY Rx Instructions: TAKE 1 CAPSULE BY MOUTH EVERY DAY acetaminophen-codeine 300-30 mg tablet 1 tablet PO Q8H PRN (Reason: pain) Qty: 60 1RF hydrocodone-acetaminophen 7.5-325 mg tablet 1 tablet PO Q6H PRN (Reason: pain) Qty: 60 0RF fluticasone propionate [Flonase Allergy Relief] 50 mcg/actuation spray,suspension 1 - 2 spray intranasal BID Qty: 48 1RF Rx Instructions: administer into each nostril. Aim back/up/out albuterol sulfate 90 mcg/actuation HFA aerosol inhaler See Rx Instructions .ROUTE .COMPLEX Qty: 8.5 3RF Dose Instruction: INHALE 1 PUFF BY MOUTH EVERY 4 HOURS NEEDED FOR SHORTNESS OF BREATH OR WHEEZING Rx Instructions: INHALE 1 PUFF BY MOUTH EVERY 4 HOURS NEEDED FOR SHORTNESS OF BREATH OR WHEEZING budesonide-formoterol 160-4.5 mcg/actuation HFA aerosol inhaler See Rx Instructions .ROUTE .COMPLEX Qty: 10.2 5RF Dose Instruction: 2 PUFF INHALED EVERY 12 HOURS WILL NEED PA . CHECK LIST OF FAILED INHALERS Rx Instructions: 2 PUFF INHALED EVERY 12 HOURS WILL NEED PA . CHECK LIST OF FAILED INHALERS codeine-guaifenesin 10-100 mg/5 mL liquid 5 ml PO Q4H PRN (Reason: cough) Qty: 120 2RF Follow-up/Referrals: Ted Zuluaga MD [Primary Care Provider] - Time of Disposition: 12:26 Quality [place] Coma Scale Eyes: Open Verbal: Oriented and Alert Motor: Follows Commands [place] Coma Total Score: 15
== END 2024-11-17 12:31 | disposition home or self-care (01) ==
PROVIDERS: Emergency Provider Registered Nurse; PCP Family Medicine
DX: J44.1 Chronic obstructive pulmonary disease with (acute) exacerbation (principal); I10 Essential (primary) hypertension; Z86.16 Personal history of COVID-19
CPT/HCPCS: 71046; 99213; G0463

== ENCOUNTER 2025-02-02 09:00 | Outpatient (RCR) | payer MEDICARE, SELFPAY ==
--- NOTE | 2024-12-11 17:01 | PCPTNOTE ---
Patient called to reschedule today's evaluation due to scheduling conflict.
--- NOTE | 2024-12-28 15:22 | OPREHPOC ---
Outpatient Therapy Plan of Care This is a Multidisciplinary Plan of Care that may contain components documented by all disciplines (PT, OT, and ST.) PT Problem 1 PT Problem #1 Knowledge Deficit PT Goal 1 Goal / Goal Update [place] with HEP Target Visit 4 PT Goal 2 Goal / Goal Update Report no hip pain greater than 2/10 for 2 consecutive weeks Target Visit 8 PT Problem 2 PT Problem #2 Impaired Gait PT Goal 1 Goal / Goal Update Demonstrate viridiana use of single point cane for hip unloading for temporary pain relief Target Visit 4 PT Goal 2 Goal / Goal Update Ambulate independently with even stride length bilaterally Target Visit 8 PT Problem 3 PT Problem #3 Impaired Strength PT Goal 1 Goal / Goal Update 1. Improve nydia hip abduction strength t 4+/5 to improve lateral hip stability 2. Improve nydia hip flexion to 4+/5 to improve foot clearence Target Visit 8
--- NOTE | 2024-12-28 15:23 | PTOPEVAL1 ---
Assessment and note entered by Jon Britt, PT Evaluation Information Assessment Status Evaluation ICD-10 Condition Codes (PT) Pain in right hip M25.551,Pain in left hip M25.552 Onset Chronic Subjective Information Reports that she has had therapy before for her hips and it significantly helped. She has some returning symptoms in addition to L knee. Reports that the left hip is hurting worse than right and gets increasingly more painful when she pushes herself. No pain when resting or sitting, but the longer she sits the harder it is for her to walk. Reports that she is really struggling with stairs as well. Assessment PT Clinical Summary Patient presents with weakness of nydia hips with direct effect on gait cycle with Trendelenburg noted and poor stride/cycle noted. Patient will benefit form skilled therapy to address deficits for improved hip stability to reduce bursal irritation and improve gait pattern. Plan of Care Interventions Gait Training,Hot Pack/Cold Pack,Manual Therapy, Neuro Re-education,Therapeutic Activities, Therapeutic Exercise PT Services Indicated Yes Treatment Frequency and 2x/week for 8 visits Duration These treatments will address the objective and functional deficits as defined above. The patient will be advanced safely and appropriately in order for the patient to progress towards his/her prior level of function. Additional exercises will be introduced and as well as a comprehensive home exercise program upon discharge, if needed, ?to ensure carryover of functional gains achieved in the clinic. This treatment plan has been reviewed and agreement upon by the patient.
--- NOTE | 2025-02-02 09:51 | OPREHPOC ---
Outpatient Therapy Plan of Care This is a Multidisciplinary Plan of Care that may contain components documented by all disciplines (PT, OT, and ST.) PT Problem 1 PT Problem #1 Knowledge Deficit PT Goal 1 Goal / Goal Update [place] with HEP 02-02-25 d/c goal met Target Visit 4 Progress Met PT Goal 2 Goal / Goal Update Report no hip pain greater than 2/10 for 2 consecutive weeks 02-02-25 d/c goal met Target Visit 8 Progress Met PT Problem 2 PT Problem #2 Impaired Gait PT Goal 1 Goal / Goal Update Demonstrate viridiana use of single point cane for hip unloading for temporary pain relief 02-02-25 d/c goal met- no longer use the cane Target Visit 4 Progress Met PT Goal 2 Goal / Goal Update Ambulate independently with even stride length bilaterally 02-02-25 d/c goal met Target Visit 8 PT Problem 3 PT Problem #3 Impaired Strength PT Goal 1 Goal / Goal Update 1. Improve nydia hip abduction strength t 4+/5 to improve lateral hip stability 2. Improve nydia hip flexion to 4+/5 to improve foot clearence 25 d/c goal 2 met; #1 4-/5 Target Visit 8 Progress Partially Met
--- NOTE | 2025-02-02 09:51 | PTOPDC ---
Assessment and note entered by Starla Rojas, PT Assessment Status Discharge ICD-10 Condition Codes (PT) Pain in right hip M25.551,Pain in left hip M25.552 Onset Chronic Subjective Information walking is better and pain is not as much; able to roll over and sleep without hip hurting; have been doing the exercises at home; feel like I am finished with therapy now; have not been using the cane anymore--not need it. Continue to have pain in my back and L knee. need to leave early due to having another appt at 10:00; Reported Pain Level Pain Score Self Report Additional Pain Score Comments no pain in hips for the past week; Assessment PT Clinical Summary Giselle has received 7 PT sessions. With today's assessment: reports NO pain in R or L hip, but has L knee and low back pain; increase strength of bilateral hip flexion of 4+/5 and hip abduction 4-/5; gait pattern, without cane, good step length and lateral trunk motion R/L; standing posture with R knee hyper extension and L slight flexion and valgus; education completed for HEP and posture in standing. The goals were partially met. Discharge PT services. She is to continue with her HEP and understands the importance of the exercises. Plan of Care PT Services Indicated No
== END 2025-02-02 13:56 | disposition home or self-care (01) ==
LOC: ANHPT 09:00
PROVIDERS: PCP Family Medicine; Visit Provider Orthopaedic Surgery
DX: M70.62 Trochanteric bursitis, left hip (principal); M70.61 Trochanteric bursitis, right hip
CPT/HCPCS: 97110; 97116; 97140; 97161; 97530

== ENCOUNTER 2025-04-17 14:10 | Emergency (ER) | payer MEDICARE, SELFPAY ==
--- NOTE | ~2025-04-17 | XR_ITS ---
EXAMINATION: XR chest 2V 04/17/2025 14:36 INDICATION: Cough for 2 weeks TECHNIQUE:Frontal and lateral images of the chest were obtained. COMPARISON: 11/17/2024 FINDINGS: Heart is mildly enlarged, unchanged. No pneumothorax. No pleural effusion. No free air in the diaphragm. Small opacities in the lower lungs. IMPRESSION: 1. Small opacities in the mid and lower lungs which represents atelectasis/scarring or infiltrates. If symptoms persist or worsen, consider a short-term follow-up study or additional imaging for further assessment. Reviewed, dictated and finalized at location Q. IMPRESSION: 1. Small opacities in the mid and lower lungs which represents atelectasis/scar ring or infiltrates. If symptoms persist or worsen, consider a short-term follow-up study or additio nal imaging for further assessment.
[2025-04-17 14:20] VITALS: BP 126/84; PULSE 103; RESP 20; TEMP 36.4; O2SAT 100
--- NOTE | 2025-04-17 15:01 | ED.URI ---
HPI - URI/Sore Throat General Chief Complaint: Upper Respiratory Infection Stated Complaint: COUGH/SOB Time Seen by Provider: 04/17/25 15:01 Source: patient and RN notes reviewed Mode of arrival: ambulatory Limitations: no limitations History of Present Illness HPI Narrative: 74-year-old female presents Express Care complaining of worsening cough, shortness of breath. Patient has a history of COPD however is is in her chart, she does states she has a history of asthma. Patient was recently treated with antibiotics and steroids in the office for the symptoms. Patient just completed a course of cefdinir and a course of prednisone, patient reports worsening symptoms. Patient denies any chest pain, nausea vomiting, congestion, runny nose, fevers, body aches, chills, or any other symptoms. Patient says she is management of breath when she exerts herself. Related Data Home Medications ?Medication ?Instructions ?Recorded ?Confirmed ?Last Taken ?Type cholecalciferol (vitamin D3) 25 25 mcg PO DAILY 12/31/20 04/04/25 Unknown History mcg (1,000 unit) tablet (Vitamin D3) multivitamin 1 tablet PO DAILY 12/31/20 04/04/25 Unknown History cyanocobalamin (vitamin B-12) 1,000 mcg PO DAILY 01/02/21 04/04/25 Unknown History 1,000 mcg tablet (Vitamin B-12) prednisolone acetate 0.12 % eye 1 drp EACH EYE Q12H 12/06/24 04/04/25 Unknown History drops,suspension Allergies Allergy/AdvReac Type Severity Reaction Status Date / Time hydralazine Allergy Intermediate rash Verified 04/17/25 14:29 Penicillins Allergy Unknown Anaphylaxis Verified 04/17/25 14:29 Sulfa (Sulfonamide Allergy Unknown Skin Verified 04/17/25 14:29 Antibiotics) Reaction doxycycline AdvReac Intermediate Nausea Verified 04/17/25 14:29 Review of Systems Review of Systems: CONSTITUTIONAL: Denies fever, chills, or sweats. EYES: Denies visual changes, redness, or discharge. ENT: Denies rhinorrhea, congestion, sore throat, or otalgia. CARDIOVASCULAR: Denies chest pain, palpitations, dizziness, lightheadedness, orthopnea, or edema. RESPIRATORY: Denies dyspnea at rest. Positive for cough and Dyspnea with exertion. GASTROINTESTINAL: Denies abdominal pain, nausea, vomiting, or diarrhea. GENITOURINARY: Denies dysuria or hematuria. SKIN: Denies rash or itching. MUSCULOSKELETAL: Denies back pain, joint pain, or myalgia. NEUROLOGIC: Denies headache, numbness, or weakness. PSYCHIATRIC: Denies anxiety or depression. All other systems reviewed are negative, except as documented in HPI. [facility] Past Medical History Medical History Chronic back pain Chronic sinusitis Left ear impacted cerumen Infective otitis externa Bilateral hearing loss due to cerumen impaction COVID-19 Goiter, nontoxic, multinodular Intracerebral hemorrhage Chronic obstructive pulmonary disease, unspecified Essential tremor Essential (primary) hypertension Surgical History Surgical History History of cataract surgery Hx of appendectomy Family History Family History Father Hypertension Family history of cardiovascular disease, Onset Age: 72 Acute myocardial infarction, Onset Age: 72 Mother Hypertension Family history of cardiovascular disease, Onset Age: 81 Social History Social History Social History: Caffeine-daily Smoking status: Never smoker Second hand tobacco smoke exposure: No Alcohol intake: never Substance use: never Substance use type: does not use Do You Feel Safe in your Home?: Yes Lack of Transportation: No Lack of Food: Never True Current Housing: I Have Housing Concerned About Future Housing: No Difficulty Paying Gas/Electric Bills: No Difficulty Paying for Meds: No Currently Unemployed: No Education: High School Diploma/GED Difficulty w/ Childcare or Family Care: No Living arrangements: alone Spiritual care concerns: No Comments At the time of my signature, I reviewed and agree with the nursing past medical, surgical, social, and family history. There is no relevant family history pertinent to the patient complaint. Exam Narrative: GENERAL: This is a well-nourished, well-developed adult, in no apparent distress. They are non ill-appearing, nontoxic appearing. HEAD: normocephalic, atraumatic. EYES: Sclera clear/white. Conjunctiva normal. Vision is grossly intact. Extraocular movements intact EARS: External ears normal, auditory canals clear and without drainage, TMs normal without perforation. Hearing grossly intact. NOSE: External nose normal with no obvious nasal discharge, nasal turbinates without redness, no rhinorrhea. THROAT: Mucous membranes moist, posterior pharynx clear, without erythema or swelling. Uvula midline. NECK: Neck supple, non-tender without lymphadenopathy, masses or thyromegaly. CARDIOVASCULAR: Regular rate and rhythm without murmurs, gallops, or rubs. RESPIRATORY: Inspiratory and expiratory wheezes heard throughout. Breath sounds equal bilaterally. No wheezes, rales, or rhonchi. Respiratory rate normal, respiratory effort labored, no accessory muscle use, no retractions. SKIN: warm, Dry, intact with no suspicious lesions or rash, good texture and turgor. NEURO: awake, alert, and oriented to person, place and time. There were no obvious focal neurologic abnormalities. EXTREMITIES: No joint tenderness, effusion, or edema noted. Course Course Emergency Course: Repeat auscultation after DuoNeb treatment reveals improved aeration, decreased respiratory earache, or nonlabored breathing, end-expiratory wheezes heard. Patient Reports feeling a lot better Level of Care: Express Care Visit Vital Signs Vital signs: Vital Signs Temperature 97.6 F 04/17/25 14:20 Pulse Rate 103 H 04/17/25 14:20 Respiratory Rate 20 04/17/25 14:20 Blood Pressure 126/84 04/17/25 14:20 Pulse Oximetry 100 04/17/25 14:20 Temperature 97.6 F 04/17/25 14:20 Pulse Rate 103 H 04/17/25 14:20 Respiratory Rate 20 04/17/25 14:20 Blood Pressure 126/84 04/17/25 14:20 Pulse Oximetry 100 04/17/25 14:20 Oxygen Delivery Room Air 04/17/25 14:29 Reviewed MDM - URI/Sore Throat MDM Narrative Medical decision making narrative: Chest x-ray shows evidence of pneumonia. Patient denies any history of COPD but reports a history of asthma. This could be an asthma exacerbation. Patient received cefdinir near prednisone, appears to be a lower dose of prednisone as she was often tapered off. Will treat her with levofloxacin along with a higher prednisone dose. Patient tolerated walking pulse ox, dropped down to 92% and quickly improved back to normal after rest. Patient given DuoNeb treatment with with significant improvement of symptoms. Repeat auscultation repeat improved aeration with end-expiratory wheezing is heard. Patient's breathing nonlabored. Offered ER transfer in patient declined. Patient nontoxic appearing, no apparent distress. Patient states she does have a follow-up with her PCP this upcoming Wednesday. Advised her to keep her appointment. Strict ER ER precautions discussed with patient specialist developed worsening shortness of breath, breathing problems, chest pain, nausea vomiting, or any serious concerns. Discussed physical exam findings. Advised supportive measures and signs/symptoms to go to the ER. Pt is appropriate for outpt treatment and f/u. Differential Diagnosis Differential diagnosis: Likely bronchitis and other (Pneumonia, COPD exacerbation, respiratory distress, respiratory failure, asthma exacerbation) Imaging Data Radiologist's impression: ITS Impressions Chest X-Ray 04/17/25 14:37 IMPRESSION: 1. Small opacities in the mid and lower lungs which represents atelectasis/scarring or infiltrates. If symptoms persist or worsen, consider a short-term follow-up study or additional imaging for further assessment. Critical Care Time Critical Care Time Critical Care Time: No Discharge Plan Discharge Clinical Impression: Pneumonia Patient Disposition: Home Condition: Stable Instructions: Antibiotic Form, Bacterial Pneumonia (ED) Additional Instructions: Take the prednisone as directed. Take antibiotics as directed until complete. Use your albuterol inhaler as needed for shortness of breath or wheezing. eat small frequent meals. Get lots of rest and drink fluids. Alternate Tylenol and ibuprofen for pain/fever follow instructions on the bottle. Call your Primary Care Doctor and make a follow-up appointment in 3 days. Go to the ER for worsening breathing problems, symptoms, chest pain, breathing problems not controlled by inhaler, nausea, vomiting, weakness, confusion, or any serious concerns. Patient Language: Tongan Prescriptions: New (DME) Space Chamber Spacer See Rx Instructions .Route Qty: 1 0RF Rx Instructions: As directed prednisone 20 mg tablet 40 mg PO DAILY 5 Days Qty: 10 0RF levofloxacin 750 mg tablet 750 mg PO DAILY 5 Days Qty: 5 0RF No Action triamcinolone acetonide [Nasacort Allergy] 55 mcg aerosol,spray 2 spray intranasal DAILY Qty: 16.9 2RF Rx Instructions: administer into each nostril cyclobenzaprine 10 mg tablet See Rx Instructions .ROUTE .COMPLEX Qty: 30 3RF Dose Instruction: TAKE 1 TABLET BY MOUTH THREE TIMES DAILY NEEDED FOR MUSCLE SPASM Rx Instructions: TAKE 1 TABLET BY MOUTH THREE TIMES DAILY NEEDED FOR MUSCLE SPASM may need ortiz lopez if not covered prednisolone acetate 0.12 % drops,suspension 1 drp EACH EYE Q12H cefdinir 300 mg capsule 300 mg PO Q12H Qty: 20 0RF Rx Instructions: aware of pcn allergy, tolerated cephalosporins previously. multivitamin Tablet 1 tablet PO DAILY cholecalciferol (vitamin D3) [Vitamin D3] 25 mcg (1,000 unit) Tablet 25 mcg PO DAILY cyanocobalamin (vitamin B-12) [Vitamin B-12] 1,000 mcg tablet 1,000 mcg PO DAILY fluticasone propionate [Flonase Allergy Relief] 50 mcg/actuation spray,suspension 1 - 2 spray intranasal BID Qty: 48 1RF Rx Instructions: administer into each nostril. Aim back/up/out budesonide-formoterol 160-4.5 mcg/actuation HFA aerosol inhaler See Rx Instructions .ROUTE .COMPLEX Qty: 10.2 5RF Dose Instruction: 2 PUFF INHALED EVERY 12 HOURS WILL NEED PA . CHECK LIST OF FAILED INHALERS Rx Instructions: 2 PUFF INHALED EVERY 12 HOURS WILL NEED PA . CHECK LIST OF FAILED INHALERS acetaminophen-codeine 300-30 mg tablet 1 tablet PO Q8H PRN (Reason: pain) Qty: 60 2RF amlodipine 2.5 mg tablet 2.5 mg PO DAILY Qty: 90 1RF irbesartan 300 mg tablet 300 mg .ROUTE DAILY Qty: 90 1RF Rx Instructions: 300 mg daily; triamterene-hydrochlorothiazid 37.5-25 mg capsule See Rx Instructions .ROUTE .COMPLEX Qty: 90 1RF Dose Instruction: TAKE 1 CAPSULE BY MOUTH EVERY DAY Rx Instructions: TAKE 1 CAPSULE BY MOUTH EVERY DAY albuterol sulfate 90 mcg/actuation HFA aerosol inhaler See Rx Instructions .ROUTE .COMPLEX Qty: 8.5 5RF Dose Instruction: INHALE 1 PUFF BY MOUTH EVERY 4 HOURS NEEDED FOR SHORTNESS OF BREATH OR WHEEZING Rx Instructions: INHALE 1 PUFF BY MOUTH EVERY 4 HOURS NEEDED FOR SHORTNESS OF BREATH OR WHEEZING prednisone 10 mg tablet 10 mg PO DIRECTED Qty: 18 0RF Rx Instructions: take 3 tablets for 3 days, 2 tablets for 3 days, 1 tablet for 3 days. hydrocodone-acetaminophen 7.5-325 mg tablet 1 tablet PO Q6H PRN (Reason: pain) Qty: 60 0RF Follow-up/Referrals: Ted Zuluaga MD [Primary Care Provider, [facility]] Time of Disposition: 15:43
[2025-04-17] MEDS: IPRATROPIUM 0.5 MG/ALBUTEROL SULFATE 2.5 MG (BASE) AMPUL.NEB 3 ML INHALATION (15:12)
== END 2025-04-17 16:01 | disposition home or self-care (01) ==
PROVIDERS: PCP Family Medicine
DX: J18.9 Pneumonia, unspecified organism (principal); I10 Essential (primary) hypertension; J44.9 Chronic obstructive pulmonary disease, unspecified
CPT/HCPCS: 71046; 99213; G0463

== ENCOUNTER 2025-04-20 16:28 | Emergency (ER) | payer MEDICARE, SELFPAY ==
--- NOTE | 2025-04-20 16:34 | ED_ITS ---
HPI - URI/Sore Throat General Chief Complaint: Upper Respiratory Infection Stated Complaint: COUGH/SOB Time Seen by Provider: 04/20/25 16:30 Source: patient Mode of arrival: ambulatory Limitations: no limitations History of Present Illness HPI Narrative: Patient is a 74-year-old female that presents with shortness of breath and cough. Patient was seen here 3 days ago and diagnosed with pneumonia. Patient has been on steroids and levofloxacin since. Patient had PCP syndrome nebulizer machine but the pharmacy is currently out. Patient having difficulty moving air and wet productive cough. Denies any fever, chills, nausea, vomiting, diarrhea. Related Data Home Medications ?Medication ?Instructions ?Recorded ?Confirmed ?Last Taken ?Type cholecalciferol (vitamin D3) 25 25 mcg PO DAILY 04/04/25 Unknown History mcg (1,000 unit) tablet (Vitamin D3) multivitamin 1 tablet PO DAILY 12/31/20 0 04/04/25 Unknown History cyanocobalamin (vitamin B-12) 1,000 mcg PO DAILY 01/0204/04/25 Unknown History 1,000 mcg tablet (Vitamin B-12) prednisolone acetate 0.12 % eye 1 drp EACH EYE Q12H 04/04/25 Unknown History drops,suspension Allergies Allergy/AdvReac Type Severity Reaction Status Date / Time hydralazine Allergy Intermediate rash Verified 04/17/25 14:29 Penicillins Allergy Unknown Anaphylaxis Verified 04/17/25 14:29 Sulfa (Sulfonamide Allergy Unknown Skin Verified 04/17/25 14:29 Antibiotics) Reaction doxycycline AdvReac Intermediate Nausea Verified 04/17/25 14:29 Review of Systems Review of Systems: All systems reviewed & are unremarkable except as noted in HPI and below Constitutional: Constitutional: Denies chills, Denies fatigue, Denies fever(s), Denies headache(s), Denies malaise and Denies weakness Eyes: Eyes: Denies blurry vision, Denies itchy eyes and Denies loss of vision ENT: Denies otalgia, Denies headache(s), Denies nasal congestion, Denies sinus pain and Denies sore throat Cardiovascular: Cardiovascular: Denies chest pain, Denies irregular heart rhythm and Denies dyspnea Respiratory: Respiratory: Reports cough and Reports dyspnea Gastrointestinal: Gastrointestinal: Denies abdominal pain, Denies diarrhea, Denies nausea and Denies vomiting Musculoskeletal: Musculoskeletal: Denies back pain, Denies myalgias and Denies arthralgias Integumentary/Breasts: Skin/Breast: Denies pruritus and Denies rash Neurologic: Denies headache(s), Denies loss of vision and Denies weakness Psychiatric: Psychiatric: Reports no additional psychiatric complaints Endocrine: Endocrine: Denies fatigue Allergic/Immunologic: Allergic/Immunologic: Denies itchy eyes PMFSH Past Medical History Medical History Chronic back pain Chronic sinusitis Left ear impacted cerumen Infective otitis externa Bilateral hearing loss due to cerumen impaction COVID-19 Goiter, nontoxic, multinodular Intracerebral hemorrhage Chronic obstructive pulmonary disease, unspecified Essential tremor Essential (primary) hypertension Surgical History Surgical History History of cataract surgery Hx of appendectomy Family History Family History Father Hypertension Family history of cardiovascular disease, Onset Age: 72 Acute myocardial infarction, Onset Age: 72 Mother Hypertension Family history of cardiovascular disease, Onset Age: 81 Social History Social History Social History: Caffeine-daily Smoking status: Never smoker Second hand tobacco smoke exposure: No Alcohol intake: never Substance use: never Substance use type: does not use Do You Feel Safe in your Home?: Yes Lack of Transportation: No Lack of Food: Never True Current Housing: I Have Housing Concerned About Future Housing: No Difficulty Paying Gas/Electric Bills: No Difficulty Paying for Meds: No Currently Unemployed: No Education: High School Diploma/GED Difficulty w/ Childcare or Family Care: No Living arrangements: alone Spiritual care concerns: No Comments At time of signature, agree with nursing past medical, surgical, social and family history. There is no relevant family history pertinent to the presenting complaint. Exam Const: General: cooperative, healthy appearing, comfortable, no acute distress and well nourished Nutritional Appearance: well nourished Orientation/consciousness: patient oriented x3 Limitations: no limitations HENMT: Head: normal to inspection, normocephalic and atraumatic Ears: hearing grossly normal bilaterally, external ears normal, TM's normal bilaterally, EAC's normal and no periauricular adenopathy Face/Nose/Sinus: Normal external nose present, Abnormal mucous membranes and turbinates present erythematous bilateral and diffuse, normal facial exam, sinuses nontender and face symmetric Face and sinus: normal facial exam, sinuses nontender and face symmetric Mouth: Yes Normal oral and palatal mucosa present, Yes lip normal, Yes tongue normal, Yes Normal salivary glands and ducts present, Yes oropharynx normal and Yes moist mucous membranes Teeth and gingiva: dentition normal Throat: posterior oropharynx normal, tonsils normal and uvula midline Eyes: General: appearance normal, both eyes and all related structures Alignment and Position: alignment normal and position normal Periorbital: periorbital findings normal Eyelids: eyelids normal Pupils: Equal, round and reactive pupils present Neck: Neck: normal visual inspection, full ROM, no lymphadenopathy and supple Chest: Chest palpation & inspection: normal inspection of the chest and normal palpation of entire chest wall Resp: Effort & Inspection: normal respiratory effort and able to speak in complete sentences Auscultation: no crackles, no rales, rhonchi throughout and no wheezes Cardio: Rate: regular rate Rhythm: regular rhythm Heart sounds: S1 normal heart sound present and S2 normal heart sound present GI: Inspection: normal to inspection Skin: General skin exam: normal color and no rashes or lesions noted Neuro: General: patient oriented x3 and moves all extremities Cranial nerves: Yes Equal, round and reactive pupils present Speech: normal speech Gait exam (Neuro): Normal gait present Extrem: General: normal to inspection, full ROM and no edema Psych: Appearance: grossly normal and well kempt Mental Status: mental status grossly normal Speech and movement: Normal speech and movement present Affect: normal affect Attitude: cooperative Thought process: Normal thought process present Course Course Emergency Course: Discharge instructions reviewed with patient, as well as provided in writing per nursing staff. The instructions also include specific and strict return/GO TO THE ER as well as f/u information. All questions have been answered, and the patient deny any further questions with discharge and discharge plan. Portions of this record may have been created with voice recognition software Level of Care: Express Care Visit Vital Signs Vital signs: Vital Signs Temperature 36.6 C 04/20/25 16:38 Pulse Rate 94 04/20/25 16:38 Respiratory Rate 20 10/10/25 16:38 Blood Pressure 167/90 H 04/20/25 16:38 Pulse Oximetry 97 04/20/25 16:38 Temperature 36.6 C 04/20/25 16:38 Pulse Rate 94 04/20/25 16:38 Respiratory Rate 20 04/20/25 16:38 Blood Pressure 167/90 H 04/20/25 16:38 Pulse Oximetry 97 04/20/25 16:38 Oxygen Delivery Room Air 04/20/25 17:14 Reviewed MDM - URI/Sore Throat MDM Narrative Medical decision making narrative: After breathing treatment patient wants sounds improved significantly. Does have mild wheezes but no longer rhonchi. Patient states she has significant relief of symptoms and feels like he is getting adequate amounts of oxygen compared to before. Patient states she does have nebulizer on order and is waiting for it to come in. Pt well hydrated appearing, in no respiratory distress, hemodynamically stable. Recommend supportive care. The patient is stable at time of discharge the clinical impression was discussed and the patient was given the opportunity to ask questions, which were addressed as completely as possible given the information available at present. Anticipatory guidance and return to care precautions were discussed and the importance of primary care follow-up was stressed and encouraged. The patient voiced understanding of the plan, indications to return, and the need for follow-up. Exam findings show no acute concerns or changes Patient is appropriate for outpatient treatment and follow-up. Differential diagnosis considered: Pneumonia, Yang virus, strep pharyngitis, allergic rhinitis, upper respiratory tract infection, sinusitis, rhinosinusitis, nasopharyngitis. viral pharyngitis, otitis media, otitis externa, otitis effusion, foreign body, cerumen impaction, viral syndrome, and influenza.? Medical Records Attestation: I reviewed the patient's medical records. Discharge Plan Discharge Clinical Impression: Pneumonia Patient Disposition: Home Condition: Stable Instructions: Community Acquired Pneumonia (ED) Additional Instructions: Pneumonia is a lung infection that can cause a fever, cough, and trouble breathing. Please continue all antibiotics as directed until complete. Nutrition is important - eat small frequent meals. Get lots of rest and drink fluids. Continue to Take antibiotic as prescribed. Use nebulizer as needed Other symptomatic treatments include: -Alternate Tylenol and Motrin per package directions for fever or pain: Tylenol 650-1000mg by mouth every 4-6 hours. Do not exceed 4000mg in 24 hours. Advil (Ibuprofen) 600 mg by mouth every 6 hours. Do not exceed 2400mg in 24 mynor rs. 8 AM: Tylenol 11 AM: Ibuprofen 2 PM: Tylenol 5 PM: Ibuprofen 8 PM: Tylenol 11 PM: Ibuprofen 2 AM: Tylenol 5 AM: Ibuprofen -Eat and drink things that are easy to swallow, like tea or soup, or popsicles. -Oral rinses such as: Salt water gargles and/or may use topical anesthetic (eg. Chloraseptic spray) or lozenges to relieve dryness or throat pain). -Frequent hand washing or hand vinyl welder and fabricator is one of the best ways to prevent spread of infection. -Using a vaporizer or humidifier at night will also help thin secretions and help with coughing up phlegm. Call your Primary Care Doctor and make a follow-up appointment in 3 days. If your cough worsens, you develop a fever greater than 103, you develop shaking chills, a fast heartbeat, trouble breathing and/or feel you are are breathing much faster than usual, call your Primary Care Doctor or go to the ER. Make sure you wash your hands frequently. Patient Language: Citizen Of [place] Prescriptions: New albuterol sulfate 2.5 mg /3 mL (0.083 %) solution for nebulization 2.5 mg inhalation Q6H Qty: 90 0RF No Action (DME) Space Chamber Spacer See Rx Instructions .Route Qty: 1 0RF Rx Instructions: As directed prednisone 20 mg tablet 40 mg PO DAILY 5 Days Qty: 10 0RF levofloxacin 750 mg tablet 750 mg PO DAILY 5 Days Qty: 5 0RF triamcinolone acetonide [Nasacort Allergy] 55 mcg aerosol,spray 2 spray intranasal DAILY Qty: 16.9 2RF Rx Instructions: administer into each nostril prednisolone acetate 0.12 % drops,suspension 1 drp EACH EYE Q12H cefdinir 300 mg capsule 300 mg PO Q12H Qty: 20 0RF Rx Instructions: aware of pcn allergy, tolerated cephalosporins previously. multivitamin Tablet 1 tablet PO DAILY cholecalciferol (vitamin D3) [Vitamin D3] 25 mcg (1,000 unit) Tablet 25 mcg PO DAILY cyanocobalamin (vitamin B-12) [Vitamin B-12] 1,000 mcg tablet 1,000 mcg PO DAILY fluticasone propionate [Flonase Allergy Relief] 50 mcg/actuation spray,suspension 1 - 2 spray intranasal BID Qty: 48 1RF Rx Instructions: administer into each nostril. Aim back/up/out budesonide-formoterol 160-4.5 mcg/actuation HFA aerosol inhaler See Rx Instructions .ROUTE .COMPLEX Qty: 10.2 5RF Dose Instruction: 2 PUFF INHALED EVERY 12 HOURS WILL NEED PA . CHECK LIST OF FAILED INHALERS Rx Instructions: 2 PUFF INHALED EVERY 12 HOURS WILL NEED PA . CHECK LIST OF FAILED INHALERS acetaminophen-codeine 300-30 mg tablet 1 tablet PO Q8H PRN (Reason: pain) Qty: 60 2RF amlodipine 2.5 mg tablet 2.5 mg PO DAILY Qty: 90 1RF irbesartan 300 mg tablet 300 mg .ROUTE DAILY Qty: 90 1RF Rx Instructions: 300 mg daily; triamterene-hydrochlorothiazid 37.5-25 mg capsule See Rx Instructions .ROUTE .COMPLEX Qty: 90 1RF Dose Instruction: TAKE 1 CAPSULE BY MOUTH EVERY DAY Rx Instructions: TAKE 1 CAPSULE BY MOUTH EVERY DAY albuterol sulfate 90 mcg/actuation HFA aerosol inhaler See Rx Instructions .ROUTE .COMPLEX Qty: 8.5 5RF Dose Instruction: INHALE 1 PUFF BY MOUTH EVERY 4 HOURS NEEDED FOR SHORTNESS OF BREATH OR WHEEZING Rx Instructions: INHALE 1 PUFF BY MOUTH EVERY 4 HOURS NEEDED FOR SHORTNESS OF BREATH OR WHEEZING prednisone 10 mg tablet 10 mg PO DIRECTED Qty: 18 0RF Rx Instructions: take 3 tablets for 3 days, 2 tablets for 3 days, 1 tablet for 3 days. hydrocodone-acetaminophen 7.5-325 mg tablet 1 tablet PO Q6H PRN (Reason: pain) Qty: 60 0RF (DME) nebulizers [Aeroneb Go Nebulizer] Misc See Rx Instructions .Route Qty: 1 0RF Rx Instructions: As directed albuterol sulfate 2.5 mg /3 mL (0.083 %) solution for nebulization 2.5 mg inhalation Q4-6H PRN (Reason: shortness of breath or wheezing) Qty: 90 1RF Follow-up/Referrals: Ted Zuluaga MD [Primary Care Provider, Family Practice] - 3 Days Time of Disposition: 17:22
[2025-04-20 16:38] VITALS: BP 167/90; PULSE 94; RESP 20; TEMP 36.6; O2SAT 97
[2025-04-20] MEDS: IPRATROPIUM 0.5 MG/ALBUTEROL SULFATE 2.5 MG (BASE) AMPUL.NEB 3 ML INHALATION (17:06)
--- NOTE | 2025-04-20 17:18 | PC.NURSE ---
nebulizer given. Sats 97% post treatment. Cough less.
== END 2025-04-20 17:28 | disposition home or self-care (01) ==
PROVIDERS: Emergency Provider Nurse Practitioner Family; PCP Family Medicine
DX: J18.9 Pneumonia, unspecified organism (principal); I10 Essential (primary) hypertension; J44.9 Chronic obstructive pulmonary disease, unspecified; E04.2 Nontoxic multinodular goiter; Z86.16 Personal history of COVID-19
CPT/HCPCS: 94640; 99213; G0463